=== PATIENT | female | born 1935 | race Caucasian/White ===

== ENCOUNTER 2019-02-16 13:30 | Inpatient (IN) | payer OTHER ==
[~2019-02-16] VITALS: Ht 165.1 cm; Wt 105.5 kg
[~2019-02-16 13:30] MED LIST: AMLO5 PO; ATEN100 PO; ATEN50 PO; CELE200 PO; CHOL10002; CINNAMON; CYAN1000; Cinnamon500 MG PO; DIOVAN; DIPH50 PO; DULO30 PO; FISH1000 PO; FLAX; GABA300 PO; HCTZ; HYDACE5; HYDACE5 PO; HYDCHL12.5 PO; Hair, Skin & N1 EACH PO; LEVSOD112 PO; LEVSOD125 PO; LOSARTAN-HCTZ1 EAC2 PO; MAGOXI400 PO; METF500 PO; MULTIVITAMIN; OMEGA 3-6-9; POTCHL10ER PO; PRAV20 PO; PRAVASTATIN 80 MG; UBID10 PO; UBID100; VALS80 PO; VITAMIN D-32000 UNI1 PO; WARF5 PO; WARF6 PO; [UNRECOGNIZED DRUG - OTHER]
[2019-02-16 13:58] LABS: PCO2 Arterial 31.1 mmHg (35-45); PO2 Arterial 260 mmHg (80-100)
[2019-02-16 14:10] LABS: BASOPHILS ABSOLUTE AUTO 0.02 K/mm3 (0.00-0.23); BASOPHILS PERCENT AUTO 0 % (0-2); EOSINOPHILS PERCENT AUTO 0 % (0-6); Hematocrit 27.8 % (33.0-51.0); Hemoglobin 8.2 g/dL (11.5-16.0); IMMATURE GRAN ABSOLUTE AUTO 0.08 K/mm3 (0.00-0.10); IMMATURE GRAN PERCENT AUTO 1 % (0-1); LYMPHOCYTES ABSOLUTE AUTO 0.93 K/mm3 (0.84-5.20); LYMPHOCYTES PERCENT AUTO 6 % (21-46); MONOCYTES ABSOLUTE AUTO 0.94 K/mm3 (0.16-1.47); MONOCYTES PERCENT AUTO 6 % (4-13); Mean Corpuscular HGB 23.8 pg (26.0-34.0); Mean Corpuscular HGB Conc 29.5 g/dL (31.5-36.5); Mean Corpuscular Volume 81 fL (80-100); Mean Platelet Volume 11.3 fL (9.1-12.4); NEUTROPHILS ABSOLUTE AUTO 14.21 K/mm3 (1.96-9.15); NEUTROPHILS PERCENT AUTO 88 % (41-73); Platelet Count 304 K/mm3 (150-400); RDW Standard Deviation 59.6 fL (35.1-46.3); Red Blood Cell Count 3.44 M/mm3 (3.80-5.20); White Blood Cell Count 16.18 K/mm3 (4.00-11.30)
[2019-02-16 14:26] LABS: International Normalized Ratio 2.63; Prothrombin Time Results 25.5 Sec (9.7-11.5)
[2019-02-16 14:27] LABS: Alanine Aminotransfer (ALT/SGP 29 U/L (12-78); Albumin, Blood 3.3 g/dL (3.4-5.0); Albumin/Globulin Ratio 1.1 (0.8-1.8); Alk Phos 94 U/L (50-136); Anion Gap 10 mmol/L (6-16); Aspartate Aminotrans (AST/SGOT 36 U/L (12-37); Bilirubin, Total 0.7 mg/dL (0.1-1.0); Blood Urea Nitrogen 30 mg/dL (8-24); CO2, Blood 23 mmol/L (21-32); Calcium, Blood 9.1 mg/dL (8.5-10.1); Chloride, Blood 106 mmol/L (98-108); Creatinine, Blood 2.31 mg/dL (0.40-1.00); Ethanol (Alcohol), Blood, Med <3 mg/dL; Globulin, Blood 2.9 g/dL (2.2-4.0); Glomerular Filtration Rate 21 (60-); Glucose, Blood 177 mg/dL (70-99); Potassium, Blood 5.6 mmol/L (3.5-5.5); Sodium, Blood 139 mmol/L (136-145); Total Protein, Blood 6.2 g/dL (6.4-8.2)
--- NOTE | 2019-02-16 17:42 | NUR ---
Stayed with pt as her wounds were suctured. Provided calm, loving presence and comfort through touch.
[2019-02-16 18:50] LABS: Albumin, Blood 2.8 g/dL (3.4-5.0); Bilirubin, Total 0.4 mg/dL (0.1-1.0); Bun/Creatinine Ratio 13.4 (12.0-20.0); Calcium, Blood 8.4 mg/dL (8.5-10.1); Creatinine, Blood 2.17 mg/dL (0.40-1.00); Globulin, Blood 2.8 g/dL (2.2-4.0); Potassium, Blood 5.4 mmol/L (3.5-5.5); Total Protein, Blood 5.6 g/dL (6.4-8.2)
--- NOTE | 2019-02-16 19:00 | NUR ---
Patient arrived at 1830 via ER [facility]. Patient was 5 person slide transfer to ICU 15 bed. I and 4 other nurses clean and dressed all wound and abrasions for 30 minutes and dressed skin tears with petroleum dressing, then Telfa, and covered with Mepelex style dressing. Two to NIKA and two to HERBERTH, jessi strip forth finger on left hand. re-dressed bailateral ankle dressings, sutures intact. .
[2019-02-16 19:23] LABS: Source, Urine Catheter
[2019-02-16 19:30] LABS: Appearance, Urine Clear (Clear); Blood, Urine Neg (Neg); Color, Urine Amber (P-Yellow); Glucose Qualitative, Urine Neg (Neg); Ketones, Urine Neg (Neg); Leukocyte Esterase, Urine 1+ (Neg); Nitrite, Urine Neg (Neg); Protein, Urine 2+ (Neg); Specific Gravity, Urine 1.015 (1.003-1.022); Urobilinogen, Urine 1+ (Normal)
--- NOTE | 2019-02-16 19:30 | NUR ---
Ruelas place 16fr temp. Systolic 90 and placed on 3L O2 for sats 87-90% and sats in low 90% currentlyPPlaced gauze over right thigh puncture site. gave report to Bibi Tsang RN. Patient systolic 80's and called a recieved order for bolus 1L NS and called Dr Yoo for consult and awaiting call back. Covered in warm blankets. Originall she was able to recal most of event and was good historian and now not as quick to respond.
[2019-02-16 19:38] LABS: Bilirubin, Urine 1+ (Neg)
[2019-02-16 19:39] LABS: Amorphous Light (0-Heavy); Bacteria Mod /hpf; Red Blood Cells, Urine 0-2 /hpf (0-2); Squamous Epithelial Cells Not Seen /hpf (Few); White Blood Cells, Urine 0-2 /hpf (0-5)
--- NOTE | 2019-02-16 20:56 | NUR ---
START OF SHIFT: PT A+O BUT STOIC. BP UNSTABLE. PT'S PUNCTURE SITE TO RIGHT THIGH DRAINING NEEDING TWO DRESSING CHANGES THUS FAR. ROSA ELENA GUZMAN PLACED PICC TO [facility]. PLACEMENT VERIFIED BY HOSPITALIST KAYDEN. Hgb DRAWN AT THAT TIME AND WAS 6.2. TWO UNITS PRBC ORDERED STAT. PT REMAINS ALERT AND ANSWERS QUESTIONS APPROPRIATELY.
--- NOTE | 2019-02-16 22:19 | NUR ---
HOSPITALIST CALLED AND WAS UPDATED. NEW ORDERS TO BOLUS ANOTHER LITER OF NS. IF PT WITH NO REACTION TO INITIAL BLOOD TRANSFUSION TO INCREASE RATE TO 200mL/hr. CALL IF BP DOES NOT IMPROVE.
--- NOTE | 2019-02-16 23:36 | NUR ---
NEURO CHECK: PT HAS BEEN AWAKENING EACH TIME RN AT BEDSIDE AND IS APPROPRIATE. PT TURNED TO LEFT SIDE WITH RIGHT LOWER EXTREM ELEVATED ON PILLOS AND IS TOLETATING WELL. PT HAS DENIED PAIN WITH ONLY C/O IS BLOOD PRESSURE CUFF. PT INSTRUCTED TO KEEP EXTREM STILL WHEN CUFF INFLATING, ISSUE RESOLVED. PT CURRENTLY RECEIVING SECOND UNIT PRBC. RIGHT THIGH PUNCTURE WOUND DRAINAGE SLOWING. PT OTHERWISE CONTINUING TO FALL ASLEEP WHEN NOT BOTHERED.
--- NOTE | 2019-02-17 02:21 | NUR ---
DR. HIGGINBOTHAM BY TO SEE PT AND WAS UPDATED. DR. HIGGINBOTHAM STATED THAT A STAT CBC WAS ORDERED AND DRAWING IT WITH THE 0230 LABS WAS FINE.
[2019-02-17 02:47] LABS: BASOPHILS ABSOLUTE AUTO 0.02 K/mm3 (0.00-0.23); BASOPHILS PERCENT AUTO 0 % (0-2); EOSINOPHILS PERCENT AUTO 0 % (0-6); Hematocrit 25.6 % (33.0-51.0); Hemoglobin 7.9 g/dL (11.5-16.0); IMMATURE GRAN ABSOLUTE AUTO 0.03 K/mm3 (0.00-0.10); IMMATURE GRAN PERCENT AUTO 0 % (0-1); LYMPHOCYTES ABSOLUTE AUTO 1.37 K/mm3 (0.84-5.20); LYMPHOCYTES PERCENT AUTO 11 % (21-46); MONOCYTES ABSOLUTE AUTO 1.39 K/mm3 (0.16-1.47); MONOCYTES PERCENT AUTO 11 % (4-13); Mean Corpuscular HGB 25.8 pg (26.0-34.0); Mean Corpuscular HGB Conc 30.9 g/dL (31.5-36.5); Mean Corpuscular Volume 84 fL (80-100); Mean Platelet Volume 11.5 fL (9.1-12.4); NEUTROPHILS ABSOLUTE AUTO 9.78 K/mm3 (1.96-9.15); NEUTROPHILS PERCENT AUTO 78 % (41-73); Platelet Count 204 K/mm3 (150-400); RDW Coefficient Variation 20.9 % (11.7-14.2); RDW Standard Deviation 63.4 fL (35.1-46.3); Red Blood Cell Count 3.06 M/mm3 (3.80-5.20); White Blood Cell Count 12.59 K/mm3 (4.00-11.30)
[2019-02-17 02:58] LABS: Hematocrit 21.1 % (33.0-51.0); Hemoglobin 6.2 g/dL (11.5-16.0); Mean Corpuscular HGB 24.3 pg (26.0-34.0); Mean Corpuscular HGB Conc 29.4 g/dL (31.5-36.5); Mean Corpuscular Volume 83 fL (80-100); Mean Platelet Volume 12.2 fL (9.1-12.4); Platelet Count 231 K/mm3 (150-400); RDW Coefficient Variation 20.9 % (11.7-14.2); RDW Standard Deviation 62.5 fL (35.1-46.3); Red Blood Cell Count 2.55 M/mm3 (3.80-5.20); White Blood Cell Count 12.24 K/mm3 (4.00-11.30)
[2019-02-17 03:00] LABS: International Normalized Ratio 2.75; Prothrombin Time Results 26.6 Sec (9.7-11.5)
[2019-02-17 03:08] LABS: Albumin, Blood 2.5 g/dL (3.4-5.0); Albumin/Globulin Ratio 1.1 (0.8-1.8); Bilirubin, Total 0.7 mg/dL (0.1-1.0); Bun/Creatinine Ratio 14.4 (12.0-20.0); Calcium, Blood 7.4 mg/dL (8.5-10.1); Creatinine, Blood 2.09 mg/dL (0.40-1.00); Globulin, Blood 2.2 g/dL (2.2-4.0); Potassium, Blood 4.9 mmol/L (3.5-5.5); Total Protein, Blood 4.7 g/dL (6.4-8.2)
--- NOTE | 2019-02-17 03:28 | NUR ---
PT CONTINUES TO AWAKE APPROPRIATELY. PT STATED IS COMFORTABLE IN POSITION, "CONSIDERING, MY BACK". PT HAS DENIED PAIN WHEN ASKED BUT GRIMACES WHEN DRESSING CHANGED TO RIGHT THIGH STATING, "THAT'S WHERE IT'S SORE". [facility] VISTED PT AND BOTH TALKED FOR A FEW MINUTES. PT CONVERSED WELL. PT WITH COMPLAINTS OR CONCERNS T/O NOC. BP REMAINS HYPOTENSIVE, SATS 94-99% ON RA, HR IN THE 60'S-70'S. PT EXTREM ELEVATED ON PILLOWS. BRICENO PATENT AND DRAINING TO GRAVITY. CALL LIGHT IN RIGHT HAND.
--- NOTE | 2019-02-17 07:30 | NUR ---
Recieved report from Bibi Tsang RN. Abdi was sitting up in bed. She is able to commumnicate her needs and get upset very quickly. She was taking off her pull up and asked why she was taking off and she stated she was pulling them up and removed them continuely stating she was putting them on. She remains in bilateral soft wrist restraints, skin and cirrculation were checked and re-applied. She was pulling O2 off and grabing at her powerglide. She layed back down and is currently resting again. She occassionaly calls to use bedside cammode but otherwise incontinent. She wears 2L O2 and sast mid to low 90%'s and drops in the 80%'s when O2 off or exertion. She re-direct with several trys.
--- NOTE | 2019-02-17 08:00 | NUR ---
Recieved report from Bibi Tsang RN. Patient resting at report but is currently sitting up in bed with HOB at 30m degrees eating breakfast and set up in fromnt of her, she is eating slow but independently. She states that she is overall very sore. She is on RA and sats upper 90%'s. Reassessed wounds and updated info on pics. She has 16Fr temp stanley placed last night and has light atul urine in bag draining to gravity.. Changed fluids to LR at 125ml/hr. Feel faint bilateral pedal bules and sound good with doppler. Bilateral LE dressings C/D/I. She has expressed when talking with her that she is very attomate about wanting restraining order and asked both SS and security for resources. Right eye still very swollen and visual blood and she states very blurry, left eye she states can see well with, no blolood in eye. RLE puncture site still open and has small amount of drainage.
[2019-02-17 08:06] LABS: U Amphetamine Screen Not Detected; U Barbituate Screen Not Detected; U Benzodiazapine Screen Not Detected; U Buprenorphine Screen Not Detected; U Cannabinoids Screen Not Detected; U Cocaine Screen Not Detected; U Methadone Screen Not Detected; U Methamphetamine Screen Not Detected; U Opiates Screen Not Detected; U Oxycodone Screen Not Detected; U Phencyclidine Screen Not Detected; U Propoxyphene Screen Not Detected
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
--- NOTE | 2019-02-17 11:18 | NUR ---
echocardiogram completed
--- NOTE | 2019-02-17 11:30 | NUR ---
She has friends in room and she gave me info to try to locate brothers in [place] to contact. Systolic still in 90's anf MAP> 65. JNo other current changes.
--- NOTE | 2019-02-17 14:00 | NUR ---
Patient has been resting and has had many visitors and calls for her. Gave report to Jaylene GUZMAN in person. Patient will be transfered to [facility] surgical . BPA is in room talking with patient and will transfer shortly after. Giving 500ml NS bolus for hypotension with systolics 80's.
--- NOTE | 2019-02-17 15:49 | NUR ---
Patient was transfered to 211 and transfered to bed with 5 assist. Fany Mariee RN continue Bolus as pressure systolic trending down after first bolus stopped.
--- NOTE | 2019-02-17 15:51 | NUR ---
TRANSFER FROM ICU PT ARRIVED FROM ICU VIA BED, AWAKE, PLEASANT, PAINFUL WHEN MOVED, MEPILEX DRESSING APPLIED TO BILAT. HEELS AND COCCYX AREA, WOUNDS NOTED, WOUND PHOTOS REVIEWED, PUNCTURE WOUND ON RLE NOTED W/ SANGUINOUS DRAINAGE, ORIENTED TO ROOM LAYOUT AND CALL SYSTEM, PT VISITING WITH GRANDDAUGHTER AND 2 DETECTIVES AT THIS TIME, CONT. TO MONITOR FOR ANY CHANGES.
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
[2019-02-17 18:38] LABS: Source, Urine Catheter
[2019-02-17 18:46] LABS: Bilirubin, Urine Neg (Neg); Blood, Urine 1+ (Neg); Glucose Qualitative, Urine Neg (Neg); Ketones, Urine Neg (Neg); Leukocyte Esterase, Urine 1+ (Neg); Nitrite, Urine Neg (Neg); Protein, Urine 1+ (Neg); Urobilinogen, Urine NORM (Normal)
[2019-02-17 18:52] LABS: Appearance, Urine Clear (Clear); Color, Urine Yellow (P-Yellow)
[2019-02-17 18:56] LABS: Bacteria Mod /hpf; Mucus Mod (0-Heavy); Red Blood Cells, Urine 0-2 /hpf (0-2); Squamous Epithelial Cells Mod /hpf (Few)
[2019-02-17 18:57] LABS: Transitional Epithelial Cells Few /hpf (0-Rare)
--- NOTE | 2019-02-17 22:28 | NUR ---
PT VSS, REPOSITIONED IN BED. PT WEAK, PAINFUL W/MVMT. NEW ABSORBANT PAD PLANED BENEATH LEGS R/T SS DRNG FROM RLE. PT MEDICATED FOR PAIN PER REQ, REP "IT'S KIDA HARD TO SAY" WHEN ASKED TO RATE PAIN. ORANGE JUICE GIVEN PER PT REQ, PT ASSISTED W/CUP. PT DENIES FURTHER NEEDS AT THIS TIME, CALL LIGHT IN REACH.
[2019-02-18 04:33] LABS: Hematocrit 20.5 % (33.0-51.0); Hemoglobin 6.3 g/dL (11.5-16.0); Mean Corpuscular HGB 25.3 pg (26.0-34.0); Mean Corpuscular HGB Conc 30.7 g/dL (31.5-36.5); Mean Corpuscular Volume 82 fL (80-100); Mean Platelet Volume 11.5 fL (9.1-12.4); Platelet Count 152 K/mm3 (150-400); RDW Coefficient Variation 21.8 % (11.7-14.2); RDW Standard Deviation 65.1 fL (35.1-46.3); Red Blood Cell Count 2.49 M/mm3 (3.80-5.20); White Blood Cell Count 8.74 K/mm3 (4.00-11.30)
[2019-02-18 04:55] LABS: Bun/Creatinine Ratio 18.7 (12.0-20.0); Calcium, Blood 7.7 mg/dL (8.5-10.1); Creatinine, Blood 1.5 mg/dL (0.40-1.00); Potassium, Blood 4.1 mmol/L (3.5-5.5)
--- NOTE | 2019-02-18 06:25 | NUR ---
H&H: H&H NOTED TO HAVE DROPPED FROM 7.9/25.6 TO 6.3/20.5. VITALS HAVE REMAINED STABLE. CALL PLACED TO HOSPITALIST, AM LABS, VITALS AND IVF ORDERS REV. NEW ORDER FOR 1 UNIT PRBC. ALSO DISCUSSED THIGH SWELLING. PLAN TO PASS ON TO DAY RN FOR FOLLOW UP BY DAY .
--- NOTE | 2019-02-18 06:28 | NUR ---
PT A/O. SATS >90% ON RA, BP STABLE, HR AFIB 70'S PER TELE MONITOR. H&H LOW THIS AM, NEW ORDERS FOR PRBC REC. FEET REMAIN PALE, ARE MORE WARM THIS AM, PULSE PALPABLE, PT REP NO CHANGE IN NUMBNESS. RIGHT THIGH SWOLLEN, W/DARK BRUISING, MD AWARE. RLE DRAINING SS DRNG, PADS CHANGED X2 THIS SHIFT R/T SATURATION. PT FRANCISCO SIPS OF WATER AND JUICE, BRICENO DRNG DARK URINE. PT VERY WEAK, PAINFUL W/MVMT; GENTLE REPOSITIONING PT FRANCISCO T/O NIGHT. IVF CONT PER ORDERS. FRIENDS IN EARLY IN SHIFT. PT REP FEELING WORN OUT AFTER VISITORS, SLEPT FOR MOST OF NIGHT, AWOKE EASILY. WILL CONT TO MONITOR UNTIL REP GIVEN TO ONCOMING RN.
--- NOTE | 2019-02-18 10:01 | NUR ---
1 UNIT PRBC STARTED, PT REPORTS PAIN HAS BEEN UNDER 5/10, BUT REPORTS RLE IS MORE "SORE" TODAY, RLE APPEARS MORE SWOLLEN, PT'S R EYE IS MORE OPEN TODAY, CONT. TO HAVE REDNESS IN SCLERA, DENIES CHANGES IN VISION BUT STATES SHE FEELS LIKE SHE NEEDS HER GLASSES TO SEE, PT ABLE TO FEED HERSELF BREAKFST THIS AM, SEEMS TO BE IN GOOD SPIRITS, CONT. TO MONITOR.
--- NOTE | 2019-02-18 11:51 | NUR ---
DR. RODRIGUEZ NOTIFIED REGARDING INCREASED SWELLING AND PAIN ON R THIGH, EXAMINED PT IN ROOM, NO NEW ORDERS RECEIVED, WILL CONTINUE TO MONITOR.
--- NOTE | 2019-02-18 16:00 | NUR ---
DSG CHANGE 3 SMALL LACERATION WOUNDS ON R LATERAL LEG NOTED DRAINING LARGE AMOUNTS OF SEROSANGUINOUS DRAINAGE, DRESSING CHANGED WITH XEROFORM, COVERED WITH ADHESIVE DRESSING, DR. WILL SAW PT DURING DRESSING CHANGE, EXAMINED PT'S R THIGH, JUST CONTINUE TO MONITOR FOR NOW, ALEXEI. ANKLE DRESSINGS CHANGED, PT TOLERATED FAIRLY WELL, TURNED AND REPOSITIONED ON L SIDE.
--- NOTE | 2019-02-18 17:32 | NUR ---
SUMMARY PT HAS HAD AN UNEVENTFUL DAY, WORKED W/ PHYS TX, UNABLE TO GET UP OOB DUE TO INCREASED PAIN AND WEAKNESS, INSTRUCTED TO DO SOME BED EXERCISES PER THERAPY, R THIGH MEASURED AT 24.5IN DURING DSG CHANGE, PT TURNED AND REPOSITIONED IN BED, NO ACUTE CHANGES THIS SHIFT.
[2019-02-19 04:58] LABS: Hematocrit 21.9 % (33.0-51.0); Hemoglobin 6.8 g/dL (11.5-16.0); Mean Corpuscular HGB 25.7 pg (26.0-34.0); Mean Corpuscular HGB Conc 31.1 g/dL (31.5-36.5); Mean Corpuscular Volume 83 fL (80-100); Mean Platelet Volume 10.8 fL (9.1-12.4); NRBC ABSOLUTE 0.02 K/mm3 (0.00-0.02); NRBC Auto 0.3 /100 WBC (0.0-0.2); Platelet Count 129 K/mm3 (150-400); RDW Coefficient Variation 20.8 % (11.7-14.2); RDW Standard Deviation 61.6 fL (35.1-46.3); Red Blood Cell Count 2.65 M/mm3 (3.80-5.20); White Blood Cell Count 7.44 K/mm3 (4.00-11.30)
[2019-02-19 05:15] LABS: Bun/Creatinine Ratio 19.3 (12.0-20.0); Calcium, Blood 7.8 mg/dL (8.5-10.1); Creatinine, Blood 1.14 mg/dL (0.40-1.00); Potassium, Blood 3.5 mmol/L (3.5-5.5)
--- NOTE | 2019-02-19 06:10 | NUR ---
SUMMARY: NO CHANGE TONIGHT, VSS. PT CONTINUES TO BE VERY PAINFUL WITH ANY MOVEMENT, REPOSITIONED Q2 AND PRN, MEDICATED PER EMAR. LEGS AND ARMS ELEVATED. DRESSINGS CDI. TELE WNL, PT A/O. NO ACUTE CONCERNS AT THIS TIME.
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
--- NOTE | 2019-02-19 15:18 | NUR ---
SHIFT SUMMARY PT A&OX4, [place] AND CANNOT SEE WELL DOES NOT HAVE EYE GLASSES IN POSSESSION. VSS, TELE AFIB @ 68. CBG'S CNI. PAIN MANAGED W/ 5 MG PERC. BRICENO PATENT & DRAINING YELLOW URINE, OFF FLOOR, STAT LOCK IN PLACE. REC'D 1 UNIT BLOOD TODAY. MOVES AND REPOSITIONS WELL W/ASSIST. NEURO CHECKS WNL. FRANCISCO PO, DENIES N&V. WCTM AND TX PER EMAR UNTIL REPORT GIVEN TO ONCOMING NOC RN.
[2019-02-20 04:41] LABS: Hematocrit 24.4 % (33.0-51.0); Hemoglobin 7.6 g/dL (11.5-16.0)
[2019-02-20 04:56] LABS: Bun/Creatinine Ratio 19.6 (12.0-20.0); Calcium, Blood 7.9 mg/dL (8.5-10.1); Creatinine, Blood 1.02 mg/dL (0.40-1.00); Potassium, Blood 3.7 mmol/L (3.5-5.5)
--- NOTE | 2019-02-20 07:45 | NUR ---
SHIFT SUMMARY PT A&O X4 T/O SHIFT. DRESSINGS TO MULTIPLE SITES CDI; SCATTERED SCABS AND ABRATIONS AND BRUISING NOTED T/O BODY. PT REPOSITIONED TOLERATED. PAIN MANGED PER EMAR. NO ACUTE CHANGES. CONT. OXEMITRY; SATS IN 90% ON RA THROUGH NIGHT AND THIS AM. JANAK PATENT. CALL LIGHT IN REACH. REPORT GIVEN TO DAY SHIFT RN.
--- NOTE | 2019-02-20 17:50 | NUR ---
SHIFT SUMMARY PT A&OX4, SLOW TO RESPOND BUT APPROPRIATE. CBGS CNI. TELE AFIB 70S-80S. WORKED WITH PHYSICAL THERAPY TODAY AND SAT ON SIDE OF BED. REPOSITION Q2. FRANCISCO PO, DENIES N&V. PAIN MANAGED WITH 5 MG PERC. BRICENO PATENT & DRAINING YELLOW URINE, STAT LOCK ON, OFF FLOOR. PICC ADRIAN. WCTM & TX PER EMAR UNTIL REPORT GIVEN TO ONCOMING KELLY GUZMAN.
[2019-02-21 04:32] LABS: Hematocrit 25.2 % (33.0-51.0); Hemoglobin 7.8 g/dL (11.5-16.0)
[2019-02-21 04:48] LABS: Anion Gap 3 mmol/L (6-16); Blood Urea Nitrogen 17 mg/dL (8-24); Bun/Creatinine Ratio 18.3 (12.0-20.0); CO2, Blood 31 mmol/L (21-32); Calcium, Blood 8.2 mg/dL (8.5-10.1); Chloride, Blood 109 mmol/L (98-108); Creatinine, Blood 0.93 mg/dL (0.40-1.00); Glomerular Filtration Rate >60 (60-); Glucose, Blood 91 mg/dL (70-99); Potassium, Blood 3.7 mmol/L (3.5-5.5); Sodium, Blood 143 mmol/L (136-145)
--- NOTE | 2019-02-21 07:49 | NUR ---
SHIFT SUMMARY: PT A&O X4. BP ELEVATED T/O SHIFT. MEDICATED WITH PERCOCET TWICE. TELE AFIB IN 70'S. DENIES N/V. FRANCISCO PO. SALINE LOCKED. BRICENO PATENT AND DRAINING CLEAR YELLOW URINE. PT PLEASANT AND COOPERATIVE.
[2019-02-21 10:00] LABS: International Normalized Ratio 1.45; Prothrombin Time Results 14.9 Sec (9.7-11.5)
--- NOTE | 2019-02-21 18:56 | NUR ---
SUMMARY NO ACUTE CHANGES T/O SHIFT. PT WORKED W/THERAPY AND WAS ABLE TO STAND AND TRANSFER TO CHAIR. SAT UP FOR DINNER. NOW BACK TO BED. JANAK WATKINS DC'D AT APPROXIMATELY 1630. ATTENDS IN PLACE. CALL LIGHT IN REACH.
[2019-02-22 05:04] LABS: International Normalized Ratio 1.33; Prothrombin Time Results 13.7 Sec (9.7-11.5)
--- NOTE | 2019-02-22 05:57 | NUR ---
GOOD URINE OUTPUT SINCE REMOVAL OF BRICENO CATH. PT IS INCONTINENT, DEPENDS IN PLACE. HAS BEEN ABLE TO TURN HERSEF IN THE BED. DENIES PAIN, DISCOMFORT, OR FURTHER NEEDS AT THIS TIME. SAFETY MEASURES IN PLACE. WILL GIVE HAND OFF TO ONCOMING SHIFT.
--- NOTE | 2019-02-22 15:49 | NUR ---
AND URVASHI IN TO SEE 211.
--- NOTE | 2019-02-22 17:27 | NUR ---
SUMMARY NO ACUTE CHANGES T/O SHIFT. PT SAT UP IN CHAIR FOR PORTION OF SHIFT AND WORKED W/THERAPY. DR WILL CHANGED DRESSINGS TO BILATERAL ANKLES. VISITORS T/O DAY. CALL LIGHT IN REACH.
[2019-02-22 21:55] LABS: Stool Occult Blood Guaiac 1 Neg (Neg)
[2019-02-23 05:18] LABS: International Normalized Ratio 1.49; Prothrombin Time Results 15.2 Sec (9.7-11.5)
--- NOTE | 2019-02-23 06:26 | NUR ---
SHIFT SUMMARY PT HAS SEVERAL BM'S THIS SHIFT. DEPENDS IN PLACE. HAS BEEN ABLE TO TURN HERSEF IN THE BED. OTTO TREATED WITH PAIN MEDS PER MD ORDER. DENIES DISCOMFORT, OR FURTHER NEEDS AT THIS TIME. SAFETY MEASURES IN PLACE. WILL GIVE HAND OFF TO ONCOMING SHIFT.
--- NOTE | 2019-02-23 14:48 | NUR ---
blister right thigh blister to right thigh drained while patient oob to restroom. mepilex applied and wrapped with gauze. dressing dislodged from right forearm skin tear. vaseline gauze, mepilex applied and wrapped with gauze. patients friend at bedside.
--- NOTE | 2019-02-23 17:50 | NUR ---
SUMMARY PATIENT CHEERFUL, TALKATIVE THROUGHOUT SHIFT. UP TO BATHROOM WITH 1 PERSON ASSIST. PATIENT IS AWAITING SNF BED
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
--- NOTE | 2019-02-23 18:46 | NUR ---
SPOKE WITH DOMINIQUE AT [facility] AND THEY ARE UNABLE TO ACCEPT PATIENT THIS EVENING WITHOUT A WRITTEN NARCOTIC PRESCRIPTION.
[2019-02-24 04:32] LABS: International Normalized Ratio 2.01
--- NOTE | 2019-02-24 06:07 | NUR ---
SHIFT SUMMARY PT REMAINS A&O X4. PAIN MANAGED PER EMAR WITH PO PERCOCET X2. DRSG TO THE RIGHT ARM CHANGED AND WRAPPED WITH GAUZE. ALL OTHER DRSG'S REMAIN C/D/I. EXTREMITIES ELEVATED ON PILLOWS THROUGH THE NIGHT, PT TURNED Q2 HRS. ATTENDS CHANGED PRN. SKIN CARE PROVIDED. TOILETING ENCOURAGED. PT REFUSED AND CLAIMED TO BE TOO PAINFUL AND STATED SHE "DID NOT REALLY KNOW WHEN SHE WAS GOING ANYHOW". WCTM AND REPORT TO THE DAY SHIFT.
--- NOTE | 2019-02-24 06:55 | NUR ---
RECVD REPORT FROM PREVIOUS RN RAS, PT SLEEPING IN BED, BED IN LOWEST POSITION, BED RAILS UP X 2, CALL LIGHT WITHIN REACH
--- NOTE | 2019-02-24 11:20 | NUR ---
report called to MEGAN Bain, pt will be transorted via wheelchair van at 1300
--- NOTE | 2019-02-24 13:14 | NUR ---
pt provided with cart for tranferring her belongings which her friend will transport to the nursing home facility in her vehicle. pt transferred to awaiting wheelchair van via wheelchair, escorted by recycling collections driver. report called to MEGAN sherman at [facility] approx [phone]
[2019-04-11] MEDS ORDERED: LINE600 PO (12:34)
[2019-04-11] MEDS ORDERED: PANT20 PO (12:34)
[2019-04-11] MEDS ORDERED: Senna8.6 MG PO (12:37)
[2019-04-11] MEDS ORDERED: Percocet 5-3251 EACH PO (12:37)
[2019-04-11] MEDS ORDERED: FURO40 PO (12:38)
[2019-04-11] MEDS ORDERED: BISA10S PR (12:38)
[2019-04-11] MEDS ORDERED: Milk Of Ma400 MG/5 M PO (12:39)
[2019-04-11] MEDS ORDERED: LEVFLO500 PO (12:40)
== END 2019-02-24 13:26 | DRG 982 ==
LOC: ER 13:30 → ICUW 16:51 → SURS 16:51 → ICUW 17:43 → SURS 02-17 15:38
PROVIDERS: Emergency Medicine; Hospitalist; Internal Medicine; Nurse Practitioner Acute Care; ADMIT Surgery
PROC: 30233N1 Transfusion of Nonautologous Red Blood Cells into Peripheral Vein, Percutaneous Approach (ICD-10-PCS; principal; 2019-02-16)
PROC: 0YQLXZZ Repair Left Ankle Region, External Approach (ICD-10-PCS; 2019-02-16)
PROC: 0YQ Anatomical Regions, Lower Extremities, Repair (ICD-10-PCS; 2019-02-16)
PROC: 0HQ5XZZ Repair Chest Skin, External Approach (ICD-10-PCS; 2019-02-16)
DX: S91.011A Laceration without foreign body, right ankle, initial encounter (principal); S21.129A Laceration with foreign body of unspecified front wall of thorax without penetration into thoracic cavity, initial encounter; N17.9 Acute kidney failure, unspecified; D62 Acute posthemorrhagic anemia; E87.2 Acidosis; R65.10 Systemic inflammatory response syndrome (SIRS) of non-infectious origin without acute organ dysfunction; S91.012A Laceration without foreign body, left ankle, initial encounter; E87.5 Hyperkalemia; Y04.2XXA Assault by strike against or bumped into by another person, initial encounter; I12.9 Hypertensive chronic kidney disease with stage 1 through stage 4 chronic kidney disease, or unspecified chronic kidney disease; E11.22 Type 2 diabetes mellitus with diabetic chronic kidney disease; N18.9 Chronic kidney disease, unspecified; I48.2 Chronic atrial fibrillation; E03.9 Hypothyroidism, unspecified; Z79.01 Long term (current) use of anticoagulants; Z51.5 Encounter for palliative care; Z85.42 Personal history of malignant neoplasm of other parts of uterus; K59.00 Constipation, unspecified
CPT/HCPCS: 12007; 36415; 36430; 36569; 36600; 51702; 70450; 70486; 71045; 71260; 72125; 72170; 73552; 74177; 80048; 80053; 81001; 82272; 82550; 82803; 82947; 83605; 83615; 83690; 83735; 83874; 84300; 84443; 84484; 85014; 85018; 85025; 85027; 85610; 85730; 86850; 86900; 86901; 86923; 87086; 90471; 90714; 93306; 94762; 96361-59; 96372-59; 96374-59; 96375-59; 96376-59; 97110; 97116; 97163; 97530; 99285-25; C1751; C9113; G0480; J0690; J2405; J3010; J7030; J7040; J7050; J7120; P9016; Q9967

== ENCOUNTER 2019-03-24 00:12 | Day surgery (SDC) | payer OTHER ==
[2019-04-11] MEDS ORDERED: PANT20 PO (12:34)
[2019-04-11] MEDS ORDERED: LINE600 PO (12:34)
[2019-04-11] MEDS ORDERED: Percocet 5-3251 EACH PO (12:37)
[2019-04-11] MEDS ORDERED: Senna8.6 MG PO (12:37)
[2019-04-11] MEDS ORDERED: BISA10S PR (12:38)
[2019-04-11] MEDS ORDERED: FURO40 PO (12:38)
[2019-04-11] MEDS ORDERED: Milk Of Ma400 MG/5 M PO (12:39)
[2019-04-11] MEDS ORDERED: LEVFLO500 PO (12:40)
== END 2019-03-24 22:46 | disposition home or self-care (01) ==
LOC: WOUND 00:12
DX: S81.809A Unspecified open wound, unspecified lower leg, initial encounter (principal); E11.9 Type 2 diabetes mellitus without complications; R60.9 Edema, unspecified; I10 Essential (primary) hypertension; E89.0 Postprocedural hypothyroidism; Z85.42 Personal history of malignant neoplasm of other parts of uterus; Z96.652 Presence of left artificial knee joint; I49.9 Cardiac arrhythmia, unspecified
CPT/HCPCS: 87071; 87075; 87077; 87147; 87186; 87205

== ENCOUNTER 2019-03-31 00:05 | Day surgery (SDC) | payer OTHER ==
[2019-04-11] MEDS ORDERED: PANT20 PO (12:34)
[2019-04-11] MEDS ORDERED: LINE600 PO (12:34)
[2019-04-11] MEDS ORDERED: Senna8.6 MG PO (12:37)
[2019-04-11] MEDS ORDERED: Percocet 5-3251 EACH PO (12:37)
[2019-04-11] MEDS ORDERED: FURO40 PO (12:38)
[2019-04-11] MEDS ORDERED: BISA10S PR (12:38)
[2019-04-11] MEDS ORDERED: Milk Of Ma400 MG/5 M PO (12:39)
[2019-04-11] MEDS ORDERED: LEVFLO500 PO (12:40)
== END 2019-03-31 22:40 | disposition home or self-care (01) ==
LOC: WOUND 00:05
DX: S81.809A Unspecified open wound, unspecified lower leg, initial encounter (principal); E11.40 Type 2 diabetes mellitus with diabetic neuropathy, unspecified; I10 Essential (primary) hypertension
CPT/HCPCS: G0463

== ENCOUNTER 2019-04-07 09:24 | Day surgery (SDC) | payer OTHER ==
[2019-04-11] MEDS ORDERED: PANT20 PO (12:34)
[2019-04-11] MEDS ORDERED: LINE600 PO (12:34)
[2019-04-11] MEDS ORDERED: Percocet 5-3251 EACH PO (12:37)
[2019-04-11] MEDS ORDERED: Senna8.6 MG PO (12:37)
[2019-04-11] MEDS ORDERED: BISA10S PR (12:38)
[2019-04-11] MEDS ORDERED: FURO40 PO (12:38)
[2019-04-11] MEDS ORDERED: Milk Of Ma400 MG/5 M PO (12:39)
[2019-04-11] MEDS ORDERED: LEVFLO500 PO (12:40)
== END 2019-04-07 22:42 | disposition home or self-care (01) ==
LOC: WOUND 09:24
DX: S81.802A Unspecified open wound, left lower leg, initial encounter (principal); S81.801A Unspecified open wound, right lower leg, initial encounter; S71.101A Unspecified open wound, right thigh, initial encounter; E11.40 Type 2 diabetes mellitus with diabetic neuropathy, unspecified; I10 Essential (primary) hypertension; I48.91 Unspecified atrial fibrillation; E03.9 Hypothyroidism, unspecified; E78.5 Hyperlipidemia, unspecified; E66.9 Obesity, unspecified

== ENCOUNTER 2019-04-12 08:58 | Day surgery (SDC) | payer OTHER ==
[~2019-04-12] VITALS: Ht 165.1 cm; Wt 100.1 kg
[~2019-04-12 08:58] MED LIST changes: +BISA10S PR; +FURO40 PO; +LEVFLO500 PO; +LINE600 PO; +Milk Of Ma400 MG/5 M PO; +PANT20 PO; +Percocet 5-3251 EACH PO; +Senna8.6 MG PO
[2019-04-12 12:05] LABS: International Normalized Ratio 1.36
[2019-04-12] MEDS ORDERED: [UNRECOGNIZED DRUG - OTHER] PO (12:10)
[2019-04-12] MEDS ORDERED: LINE600 PO (12:12)
[2019-04-12] MEDS ORDERED: Ear System15 ML BOTHEARS (12:14)
[2019-04-12] MEDS ORDERED: Humalog100 UNIT/1 (12:16)
--- NOTE | 2019-04-12 12:18 | NUR ---
MEDICATION LIST AND LAST DOSE RECONCILED PER ALKA OLVERA AND VERBAL CONVERSATION OVER THE PHONE TO CLARIFY NO MEDICATIONS HAD BEEN GIVEN TODAY.
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
--- NOTE | 2019-04-12 13:10 | NUR ---
04/12/19 1310 Vivian Winters ALL COUNTS CORRECT. HOME WOUND VAC PLACED BY DR. ANDERSEN.
--- NOTE | 2019-04-12 16:31 | NUR ---
[facility] HERE TO GET PATIENT. PATEINT JUAN PAIN, NAUSEA. TOLERATING PO. Discharge instructions reviewed with patient. Patient verbalizes understanding. Copy given to patient to take home. CALLED REPORT TO KRIS GUZMAN. FAXED HER DISCHARGE INSTRUCTIONS TO ENSURE CLARITY OF RESUMING COUMADIN ON 04/13/19. FAXED TO [facility] FOR WOUND VAC. OUT VIA W/C WITH TRANSPORT
== END 2019-04-12 23:26 | disposition home or self-care (01) ==
LOC: ORSCMMR 08:58 → ORD 10:30 → ORSCMMR 10:30
PROVIDERS: Surgery
PROC: 0KBQ0ZZ Excision of Right Upper Leg Muscle, Open Approach (ICD-10-PCS; principal; 2019-04-12 10:30)
PROC: 0JBL0ZZ Excision of Right Upper Leg Subcutaneous Tissue and Fascia, Open Approach (ICD-10-PCS; principal; 2019-04-12 10:30)
DX: S71.101S Unspecified open wound, right thigh, sequela (principal); E11.9 Type 2 diabetes mellitus without complications; I10 Essential (primary) hypertension; E03.9 Hypothyroidism, unspecified; I48.91 Unspecified atrial fibrillation; Z79.01 Long term (current) use of anticoagulants; I25.10 Atherosclerotic heart disease of native coronary artery without angina pectoris; Z79.899 Other long term (current) drug therapy; E66.9 Obesity, unspecified
CPT/HCPCS: 82947; 85610; J0690; J2704; J3010; J7120

== ENCOUNTER 2019-04-14 00:31 | Day surgery (SDC) | payer OTHER ==
[~2019-04-14 00:31] MED LIST changes: +Ear System15 ML BOTHEARS; +Humalog100 UNIT/1; +[UNRECOGNIZED DRUG - OTHER] PO
== END 2019-04-14 23:08 | disposition home or self-care (01) ==
LOC: WOUND 00:31
DX: S71.101A Unspecified open wound, right thigh, initial encounter (principal); S91.001A Unspecified open wound, right ankle, initial encounter; S91.002A Unspecified open wound, left ankle, initial encounter; E11.42 Type 2 diabetes mellitus with diabetic polyneuropathy; I10 Essential (primary) hypertension; I48.91 Unspecified atrial fibrillation

== ENCOUNTER 2019-04-19 16:44 | Emergency (ER) | payer OTHER ==
[~2019-04-19] VITALS: Ht 165.1 cm; Wt 113.4 kg
[2019-04-19 18:15] LABS: Source, Urine Catheter
[2019-04-19 18:26] LABS: Bilirubin, Urine Neg (Neg); Blood, Urine 5+ (Neg); Glucose Qualitative, Urine Neg (Neg); Ketones, Urine Neg (Neg); Leukocyte Esterase, Urine 1+ (Neg); Nitrite, Urine Neg (Neg); Protein, Urine 1+ (Neg); Urobilinogen, Urine NORM (Normal)
[2019-04-19 18:29] LABS: BASOPHILS ABSOLUTE AUTO 0.01 K/mm3 (0.00-0.23); BASOPHILS PERCENT AUTO 0 % (0-2); EOSINOPHILS PERCENT AUTO 0 % (0-6); Hematocrit 22.9 % (33.0-51.0); Hemoglobin 6.9 g/dL (11.5-16.0); IMMATURE GRAN ABSOLUTE AUTO 0.17 K/mm3 (0.00-0.10); IMMATURE GRAN PERCENT AUTO 2 % (0-1); LYMPHOCYTES PERCENT AUTO 4 % (21-46); MONOCYTES PERCENT AUTO 6 % (4-13); Mean Corpuscular HGB 24.8 pg (26.0-34.0); Mean Corpuscular HGB Conc 30.1 g/dL (31.5-36.5); Mean Corpuscular Volume 82 fL (80-100); Mean Platelet Volume 11.2 fL (9.1-12.4); NEUTROPHILS ABSOLUTE AUTO 10.04 K/mm3 (1.96-9.15); NEUTROPHILS PERCENT AUTO 88 % (41-73); NRBC ABSOLUTE 0.05 K/mm3 (0.00-0.02); NRBC Auto 0.4 /100 WBC (0.0-0.2); Platelet Count 192 K/mm3 (150-400); RDW Coefficient Variation 16.2 % (11.7-14.2); RDW Standard Deviation 49.1 fL (35.1-46.3); Red Blood Cell Count 2.78 M/mm3 (3.80-5.20); White Blood Cell Count 11.42 K/mm3 (4.00-11.30)
[2019-04-19 18:33] LABS: Appearance, Urine Clear (Clear); Color, Urine Yellow (P-Yellow)
[2019-04-19 18:34] LABS: Bacteria Mod /hpf; Squamous Epithelial Cells Few /hpf (Few)
[2019-04-19 18:47] LABS: Anion Gap 3 mmol/L (6-16); Blood Urea Nitrogen 19 mg/dL (8-24); Bun/Creatinine Ratio 20.4 (12.0-20.0); CO2, Blood 32 mmol/L (21-32); Calcium, Blood 8.8 mg/dL (8.5-10.1); Chloride, Blood 105 mmol/L (98-108); Creatinine, Blood 0.93 mg/dL (0.40-1.00); Glomerular Filtration Rate >60 (60-); Glucose, Blood 131 mg/dL (70-99); Potassium, Blood 3.8 mmol/L (3.5-5.5); Sodium, Blood 140 mmol/L (136-145)
[2019-04-19] MEDS ORDERED: LEVFLO500 PO (19:24)
== END 2019-04-19 20:52 | disposition home or self-care (01) ==
LOC: ER 16:44
PROVIDERS: Emergency Medicine
DX: J18.9 Pneumonia, unspecified organism (principal); N39.0 Urinary tract infection, site not specified; D64.9 Anemia, unspecified; E11.9 Type 2 diabetes mellitus without complications; L53.8 Other specified erythematous conditions
CPT/HCPCS: 36415; 71046; 80048; 81001; 85025; 87086; 99284-25; P9612

== ENCOUNTER 2019-04-20 00:28 | Day surgery (SDC) | payer OTHER | END 2019-04-20 22:53 | disposition home or self-care (01) | LOC: WOUND | DX: S71.101A Unspecified open wound, right thigh, initial encounter (principal); S91.002A Unspecified open wound, left ankle, initial encounter; S91.001A Unspecified open wound, right ankle, initial encounter; E11.42 Type 2 diabetes mellitus with diabetic polyneuropathy; I10 Essential (primary) hypertension; I48.91 Unspecified atrial fibrillation; Y08.89XA Assault by other specified means, initial encounter ==

== ENCOUNTER 2019-04-24 02:05 | Inpatient (IN) | payer OTHER ==
[~2019-04-24] VITALS: Ht 165.1 cm; Wt 105.1 kg
[2019-04-24 02:27] LABS: BASOPHILS ABSOLUTE AUTO 0.02 K/mm3 (0.00-0.23); BASOPHILS PERCENT AUTO 0 % (0-2); EOSINOPHILS PERCENT AUTO 4 % (0-6); Hematocrit 23.4 % (33.0-51.0); Hemoglobin 6.9 g/dL (11.5-16.0); IMMATURE GRAN ABSOLUTE AUTO 0.05 K/mm3 (0.00-0.10); IMMATURE GRAN PERCENT AUTO 1 % (0-1); LYMPHOCYTES PERCENT AUTO 24 % (21-46); MONOCYTES ABSOLUTE AUTO 0.87 K/mm3 (0.16-1.47); MONOCYTES PERCENT AUTO 12 % (4-13); Mean Corpuscular HGB 24.8 pg (26.0-34.0); Mean Corpuscular HGB Conc 29.5 g/dL (31.5-36.5); Mean Corpuscular Volume 84 fL (80-100); Mean Platelet Volume 10.7 fL (9.1-12.4); NEUTROPHILS ABSOLUTE AUTO 4.24 K/mm3 (1.96-9.15); NEUTROPHILS PERCENT AUTO 59 % (41-73); Platelet Count 276 K/mm3 (150-400); RDW Coefficient Variation 16.4 % (11.7-14.2); RDW Standard Deviation 50.6 fL (35.1-46.3); Red Blood Cell Count 2.78 M/mm3 (3.80-5.20); White Blood Cell Count 7.18 K/mm3 (4.00-11.30)
[2019-04-24 02:42] LABS: International Normalized Ratio 2.14; Prothrombin Time Results 21.2 Sec (9.7-11.5)
[2019-04-24 02:46] LABS: Alanine Aminotransfer (ALT/SGP 14 U/L (12-78); Albumin, Blood 2.3 g/dL (3.4-5.0); Albumin/Globulin Ratio 0.8 (0.8-1.8); Alk Phos 134 U/L (50-136); Anion Gap 7 mmol/L (6-16); Aspartate Aminotrans (AST/SGOT 11 U/L (12-37); Bilirubin, Total 0.2 mg/dL (0.1-1.0); Blood Urea Nitrogen 19 mg/dL (8-24); Bun/Creatinine Ratio 21.2 (12.0-20.0); CO2, Blood 29 mmol/L (21-32); Calcium, Blood 8.5 mg/dL (8.5-10.1); Chloride, Blood 109 mmol/L (98-108); Globulin, Blood 2.9 g/dL (2.2-4.0); Glomerular Filtration Rate >60 (60-); Glucose, Blood 120 mg/dL (70-99); Potassium, Blood 3.7 mmol/L (3.5-5.5); Sodium, Blood 145 mmol/L (136-145); Total Protein, Blood 5.2 g/dL (6.4-8.2)
[2019-04-24 02:49] LABS: Magnesium, Blood 1.7 mg/dL (1.6-2.4); Troponin I <0.015 ng/mL (0.000-0.040)
[2019-04-24] MEDS ORDERED: WARF4 PO (02:52)
[2019-04-24] MEDS ORDERED: Tylenol325 MG PO (02:52)
[2019-04-24] MEDS ORDERED: ONDA4ODT MM (02:53)
[2019-04-24] MEDS ORDERED: Percocet 5-3251 EACH PO (02:54)
[2019-04-24] MEDS ORDERED: MIRALAX17 GM PO (02:56)
[2019-04-24] MEDS ORDERED: BISA10S PR (02:57)
[2019-04-24] MEDS ORDERED: ATEN25 PO (03:02)
[2019-04-24 04:25] LABS: Percent Saturation 9.1 % (15.0-50.0)
--- NOTE | 2019-04-24 06:10 | NUR ---
PT ADMITTED TO ROOM ICU 15 FROM ED AT 0511. REPORT RECEIVED FROM MEGAN CARIAS. PT NON-VERBAL EXCEPT TO SAYS 'YES' OR 'NO' TO QUESTIONS. PT FOLLOWS COMMANDS TO SQUEEZE LEFT HAND, UNABLE TO MOVE HER RIGHT HAND OR SIDE. PT HAS NOTED FACIAL DROOP TO RIGHT SIDE. PERRLA AND ABLE TO TRACK WITH EYES. ORDERED ONE UNIT OF PRBC'S. PT GIVES CONSENT FOR TRANSFUSION. TWO RN VERIFY AND SIGNED. TRANSFUSION IN PROCESS WITHOUT S/S TRANSFUSION REACTIONS. DID TAKE MAINTANENCE FLUID TO 20 ML/HOUR WHILE TRANSFUSION IN PROCESS. WILL REVIEW CHART AND PLAN OF CARE FOR THIS PT.
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
[2019-04-24 11:01] LABS: Hematocrit 26.6 % (33.0-51.0); Hemoglobin 7.9 g/dL (11.5-16.0)
[2019-04-24 11:23] LABS: Cholesterol 147 mg/dL (50-200); HDL Cholesterol 37 mg/dL (>39); LDL/HDL RATIO 2.3; Low Density Lipoprotein Chol 85 mg/dL (0-110); Triglycerides 124 mg/dL (30-160); Very Low Density Lipoprot Chol 24 mg/dL (6-32)
--- NOTE | 2019-04-24 12:10 | NUR ---
BLOOD EARLIER COMPLETED AND H/H NOTED. PT RESTING W/O DISTRESS OR CURRENT OBSERVED CHANGES IN STATUS. DR ISAAC IS REQUESTING TO CONT. WITH M.R.A. AND CONVERSATION WITH BROTHER WAS REPORTED TO HER. C-COLAR IS TO REMAIN ON.
--- NOTE | 2019-04-24 15:36 | NUR ---
PT TRANSFERRED TO PCU 6 AFTER MRI COMPLETED. PT AWAKE, NODS AND BLINKS EYES TO QUESTIONS. SHE MOANS AND GROANS IN RESPONSE, ATTEMPTS TO SPEAK BUT IS NONVERBAL. ATTEMPTS TO FOLLOW COMMANDS BUT HAS LIMITED MOVEMENT. SQUEEZES FINGERS WITH LEFT HAND, RIGHT HAND AND ARM FLACCID. MOVES FEET BILATERALLY BUT UNABLE TO LIFT LEGS. LOG ROLLS FOR TRANSFERS. C COLLAR IN PLACE.
--- NOTE | 2019-04-24 16:32 | NUR ---
LATE ENTRY... REPORT GIVEN TO MARVIN Vásquez RN AND PT TO PCU-6 AFTER GOING DOWN TO MRI. DR ISAAC SIGNED THE MRI CLEARING FORM NOTED IN THE ABSENCE OF OLD RECORDS. PT WAS SL MORE VERBAL WHEN QUESTIONED AT THIS TIME. WOUND VAC DISCONNECTED AND CLAMPED LINES FOR MRI PROCEDURE. C-COLAR IN PLACE AND PCU STAFF TO MRI FOR C-SPINE PROTECTION.
--- NOTE | 2019-04-24 19:20 | NUR ---
SHIFT SUMMARY: PT RESTING QUIETLY. LOG ROLL FOR REPOSITIONING AND CHANGES. C-COLLAR IN PLACE. NEURO STATUS REMAINS UNCHANGED THIS SHIFT SINCE TRANSFER OF CARE. MEPILEX APPLIED TO COCCYX DUE TO SPLIT IN SKIN. SUCTION AT BEDSIDE. NO FURTHER NEEDS OR CONCERNS
[2019-04-25 03:55] LABS: BASOPHILS ABSOLUTE AUTO 0.03 K/mm3 (0.00-0.23); BASOPHILS PERCENT AUTO 0 % (0-2); EOSINOPHILS ABSOLUTE AUTO 0.13 K/mm3 (0.00-0.68); EOSINOPHILS PERCENT AUTO 1 % (0-6); Hematocrit 26.8 % (33.0-51.0); Hemoglobin 8.1 g/dL (11.5-16.0); IMMATURE GRAN ABSOLUTE AUTO 0.06 K/mm3 (0.00-0.10); IMMATURE GRAN PERCENT AUTO 1 % (0-1); LYMPHOCYTES ABSOLUTE AUTO 1.05 K/mm3 (0.84-5.20); LYMPHOCYTES PERCENT AUTO 11 % (21-46); MONOCYTES ABSOLUTE AUTO 0.65 K/mm3 (0.16-1.47); MONOCYTES PERCENT AUTO 7 % (4-13); Mean Corpuscular HGB 24.6 pg (26.0-34.0); Mean Corpuscular HGB Conc 30.2 g/dL (31.5-36.5); Mean Corpuscular Volume 82 fL (80-100); Mean Platelet Volume 10.9 fL (9.1-12.4); NEUTROPHILS ABSOLUTE AUTO 7.42 K/mm3 (1.96-9.15); NEUTROPHILS PERCENT AUTO 80 % (41-73); Platelet Count 300 K/mm3 (150-400); RDW Coefficient Variation 16.4 % (11.7-14.2); RDW Standard Deviation 48.2 fL (35.1-46.3); Red Blood Cell Count 3.29 M/mm3 (3.80-5.20); White Blood Cell Count 9.34 K/mm3 (4.00-11.30)
[2019-04-25 04:18] LABS: Anion Gap 6 mmol/L (6-16); Blood Urea Nitrogen 12 mg/dL (8-24); Bun/Creatinine Ratio 15.6 (12.0-20.0); CO2, Blood 30 mmol/L (21-32); Calcium, Blood 8.7 mg/dL (8.5-10.1); Chloride, Blood 106 mmol/L (98-108); Creatinine, Blood 0.77 mg/dL (0.40-1.00); Glomerular Filtration Rate >60 (60-); Glucose, Blood 90 mg/dL (70-99); Potassium, Blood 3.5 mmol/L (3.5-5.5); Sodium, Blood 142 mmol/L (136-145)
--- NOTE | 2019-04-25 05:40 | NUR ---
END OF SHIFT SUMMARY DESPITE RECENT CVA, PT HAS BEEN ABLE TO COMMUNICATE NEEDS TO THIS NURSE. CAN SAY A FEW WORDS BUT ANSWERS YES OR NO QUESTIONS BEST. R ARM CONTINUES TO BE FLACCID. R LEG SHOWS SOME MOTOR MOVEMENT. PT USES LEFT HAND TO COMPLETE MAJORITTY OF TASKS, IS EVEN ABLE TO HELP STAFF TURN HER. VS HAVE BEEN STABLE EXCEPT ONE BOUT OF HTN THAT HAS RESOLVED. PT BEING TURNED BY STAFF AND HAVING CONTINENCE CHECKS. PT HAS PUT OUT MUCH IN TERMS OF URINE INTO BRIEFS. PT CONTINUES WITH C COLLAR, AT ONE POINT THIS NURSE WALKED IN AND FOUND THE C COLLAR OFF. PT REMINDED NOT TO REMOVE IT DUE TO HER HAVING A FX. PT STATES AGREEMENT TO THIS. WOUND VACS CONTINUE TO BE PATENT AND WOUNDS DRAINING. PT IS ABLE TO STATE WHEN SHE IS COMFORTABLE AND HAS DONE SO POST TURNING. PT HAS RESTED WITH EYES CLOSED FOR MAJORITY OF SHIFT. ORAL CARE COMPLETED DUE TO DRY MOUTH. BED IN LOWEST POSITION. BED ALARM ON. CALL LIGHT WITHIN REACH. WILL CONTINUE TO MONITOR PT UNTIL SHIFT CHANGE.
--- NOTE | 2019-04-25 07:29 | NUR ---
ASSUMED CARE: PT RESTING IN BED. C-COLLAR IN PLACE. RESTING QUIETLY, NO ACUTE NEEDS OR CONCERNS AT THIS TIME.
--- NOTE | 2019-04-25 18:38 | NUR ---
Clinical Visit: Pt is alert, answers yes and no questions with a nod/shake of her head. She is reporting pain and indicates her neck. She is also nodding her head that she is anxious. She does want her pain treated, confirmed by nod. Spoke to Shanika. She reports that pt is improving, just in the 12 hours she has been on shift. She is able to interact more now than she was at the begining of the shift. Call placed to Dr. Harper. Orders placed for one time dose of toradol and Tylenol suppository to be given q 6 hours PRN. Will follow up with pt tomorrow to see if effective.
--- NOTE | 2019-04-25 18:43 | NUR ---
SHIFT SUMMARY: PT RESTING QUIETLY, C-COLLAR IN PLACE. NEURO STATUS SEEMS TO BE IMPROVING DAY PROGRESSES. INCREASED STRENGTH AND ABILITY IN ALL LIMBS, STILL UNABLE TO KILN WORKER WITH RIGHT HAND. UPDATES GIVEN TO PT'S BROTHER T/O DAY. SPEECH BECOMING MORE CLEAR. SPEECH THERAPIST TO EVALUATE TOMORROW. PALLIATIVE CARE SPOKE WITH PT ABOUT PAIN AND OBTAINED NEW ORDERS.
--- NOTE | 2019-04-25 21:57 | NUR ---
PROVIDER / VTACH PT HAD 2 MINUTES OF CONTINUOUS WIDE COMPLEX VTACH. TELE PLACED IN CHART. PT ASYMPTOMATIC. PULSES STRONG AND PALPABLE. DR CASTAÑEDA CALLED AND ALERTED OF THIS. ALERTED OF CONDITION. DISCUSSED CARE WITH . [facility] LABS ORDERED. NO NEW ORDERS BESIDES THESE LABS PLACED. WILL CONTINUE TO MONITOR PT.
--- NOTE | 2019-04-26 05:34 | NUR ---
END OF SHIFT SUMMARY PT CONTINUES TO SHOW IMPROVEMENT WITH R SIDE. CAN LIFT R HAND AND STATES RETURN OF FEELING. WORDS ARE MORE PRONOUNCED. PT ABLE TO EXPRESS NEEDS VIA YES/NO QUEASTIONS AND A FEW OTHER WORDS. CONTINUES WITH C COLLAR. IV'S BLOWN, NECESSITATING A POWERGLIDE PLACEMENT, LAYLA. SUCCESFULLY PLACED, PATENT, AND DRAWS BLOOD. PT BEING TURNED BY STAFF WITH CONSISTENT CONTINENCE CHECKS. ORAL CARE BEING PERFORMED WITH TURNING. PT HAD 2 MINUTES OF WIDE COMPLEX V TACH CONTINUOUSLY. PT WAS ASYMPTOMATIC DURING THIS EPISODE. SEE PROVIDER NOTE. PT RETURNED TO AFIB BASELINE AND VS HAVE REMAINED STABLE SINCE. WOUND PUMP REPLACED WITH FACILITY INPATIENT DUE TO NOT HAVING REPLACEMENT FOR WOUND PUMP PT PRESENTED TO HOSPITAL WITH. CALL LIGHT BESIDE PT. WILL CONTINUE TO MONITOR PT UNTIL SHIFT CHANGE.
[2019-04-26 08:58] LABS: BASOPHILS ABSOLUTE AUTO 0.04 K/mm3 (0.00-0.23); BASOPHILS PERCENT AUTO 1 % (0-2); EOSINOPHILS ABSOLUTE AUTO 0.15 K/mm3 (0.00-0.68); EOSINOPHILS PERCENT AUTO 2 % (0-6); Hematocrit 29.1 % (33.0-51.0); Hemoglobin 8.8 g/dL (11.5-16.0); IMMATURE GRAN ABSOLUTE AUTO 0.04 K/mm3 (0.00-0.10); IMMATURE GRAN PERCENT AUTO 1 % (0-1); LYMPHOCYTES ABSOLUTE AUTO 0.85 K/mm3 (0.84-5.20); LYMPHOCYTES PERCENT AUTO 10 % (21-46); MONOCYTES PERCENT AUTO 7 % (4-13); Mean Corpuscular HGB 25.1 pg (26.0-34.0); Mean Corpuscular HGB Conc 30.2 g/dL (31.5-36.5); Mean Corpuscular Volume 83 fL (80-100); Mean Platelet Volume 9.8 fL (9.1-12.4); NEUTROPHILS ABSOLUTE AUTO 7.11 K/mm3 (1.96-9.15); NEUTROPHILS PERCENT AUTO 81 % (41-73); Platelet Count 314 K/mm3 (150-400); RDW Coefficient Variation 17.2 % (11.7-14.2); RDW Standard Deviation 51.9 fL (35.1-46.3); White Blood Cell Count 8.79 K/mm3 (4.00-11.30)
[2019-04-26 09:18] LABS: Anion Gap 7 mmol/L (6-16); Blood Urea Nitrogen 12 mg/dL (8-24); Bun/Creatinine Ratio 14.1 (12.0-20.0); CO2, Blood 29 mmol/L (21-32); Calcium, Blood 8.5 mg/dL (8.5-10.1); Chloride, Blood 107 mmol/L (98-108); Creatinine, Blood 0.85 mg/dL (0.40-1.00); Glomerular Filtration Rate >60 (60-); Glucose, Blood 87 mg/dL (70-99); Potassium, Blood 3.7 mmol/L (3.5-5.5); Sodium, Blood 143 mmol/L (136-145); Troponin I 0.028 ng/mL (0.000-0.040)
--- NOTE | 2019-04-26 11:56 | NUR ---
pt laying in bed with her eyes closed, she will open eyes with verbal, but returns closed immed. she assists with turning a bit, lungs are clear dim in bases, resp even and unalbored, no cough noted, hrirr, tele in place running sr per monitor, see strip, trace edema noted to b/l le, ppp faint, cap refill <3sec, vs stable, afebrile, iv site is power glide to lucrecia site is clear and patent, btx4, abd flat soft nontender, voids via attends, skin has wound vac to ruthigh and ankle, turn Q2, renetta, call light in reach.
--- NOTE | 2019-04-26 14:05 | NUR ---
pt condition unchanged, she is being turned every 2 hrs. wakes briefly. call light in reach.
--- NOTE | 2019-04-26 17:56 | NUR ---
pt has had an uneventful day, no acute changes this shift, she will open eyes and respond with one word answers, right arm weak. call light in reach.
--- NOTE | 2019-04-27 04:39 | NUR ---
SHIFT SUMMARY NO ACUTE CHANGES TO REPORT THIS SHIFT. ASSESSMENT HAS REMAINED AT BASELINE. PT RESPONDS TO MY QUESTIONS WITH ONE WORDED ANSWERS. SHE DENIES PAIN OR NEEDS WHEN ASKED. INCONTINENT. WOUND VACS TO BOTH LEGS IN PLACE. PATENT WITH PINK DRAINAGE. C-COLLAR INTACT. PERMISSIVE HTN PER DR. BAILON. IVF INFUSING AT 75ML/HR. RESTFUL NIGHT. WILL CONTINUE TO MONITOR AND REPORT TO ONCOMING RN.
--- NOTE | 2019-04-27 19:10 | NUR ---
PATIENT TRANSFER: PATIENT TRANSFER TO MEDICAL FLOOR ROOM 328 THIS SHIFT. PT ALERT; ORIENTED TO SELF AND FOLLOWING DIRECTIONS. NO C/O PAIN. VSS. WOUND VAC IN PLACE TO BILATERAL LEG WOUNDS. PATIENT ON BEDREST. PT & OT EVALS THIS SHIFT. ASPIRATION PRECAUTIONS:MEDS CRUSHED IN APPLESAUCE; NO STRAWS; LIQUIDS BY SPOON. NS @ 75 CONTINUING. REPORT GIVEN TO MEGAN COVARRUBIAS.
--- NOTE | 2019-04-28 04:24 | NUR ---
NOC SHIFT SUMMARY PT ADMITTED FOR STROKE WITH RIGHT SIDED WEAKNESS. SHE IS ORIENTED TO SELF AND FOLLOWS DIRECTIONS WELL. C-COLLAR IN PLACE. WOUND VAC IN PLAC AND DRAINING WELL. FLUIDS AT 75 HER HOUR. SHE HAS BEEN TURNED THROUGH THE NIGHT. NOTICED SOME CRACKED SKIN ON COCCYS AND PROTECTIVE MEPILEX APPLIED. ON TELE A-FIB RATE 75 ON LAST CHECK. PRESENTLY APPEARS IN NO ACUTE DISTRESS. WILL CONTINUE TO MONITOR.
[2019-04-28 07:04] LABS: BASOPHILS ABSOLUTE AUTO 0.02 K/mm3 (0.00-0.23); BASOPHILS PERCENT AUTO 0 % (0-2); EOSINOPHILS ABSOLUTE AUTO 0.15 K/mm3 (0.00-0.68); EOSINOPHILS PERCENT AUTO 2 % (0-6); Hematocrit 29.3 % (33.0-51.0); Hemoglobin 8.8 g/dL (11.5-16.0); IMMATURE GRAN ABSOLUTE AUTO 0.03 K/mm3 (0.00-0.10); IMMATURE GRAN PERCENT AUTO 1 % (0-1); LYMPHOCYTES ABSOLUTE AUTO 0.62 K/mm3 (0.84-5.20); LYMPHOCYTES PERCENT AUTO 10 % (21-46); MONOCYTES ABSOLUTE AUTO 0.65 K/mm3 (0.16-1.47); MONOCYTES PERCENT AUTO 10 % (4-13); Mean Corpuscular HGB 24.7 pg (26.0-34.0); Mean Corpuscular Volume 82 fL (80-100); Mean Platelet Volume 9.8 fL (9.1-12.4); NEUTROPHILS ABSOLUTE AUTO 5.01 K/mm3 (1.96-9.15); NEUTROPHILS PERCENT AUTO 77 % (41-73); Platelet Count 304 K/mm3 (150-400); RDW Coefficient Variation 17.3 % (11.7-14.2); RDW Standard Deviation 51.5 fL (35.1-46.3); Red Blood Cell Count 3.56 M/mm3 (3.80-5.20); White Blood Cell Count 6.48 K/mm3 (4.00-11.30)
[2019-04-28 07:07] LABS: Anion Gap 6 mmol/L (6-16); Blood Urea Nitrogen 9 mg/dL (8-24); Bun/Creatinine Ratio 12.3 (12.0-20.0); CO2, Blood 29 mmol/L (21-32); Calcium, Blood 8.3 mg/dL (8.5-10.1); Chloride, Blood 106 mmol/L (98-108); Creatinine, Blood 0.73 mg/dL (0.40-1.00); Glomerular Filtration Rate >60 (60-); Glucose, Blood 92 mg/dL (70-99); Potassium, Blood 3.1 mmol/L (3.5-5.5); Sodium, Blood 141 mmol/L (136-145)
--- NOTE | 2019-04-28 09:31 | NUR ---
BLOOD SUGAR CHANGED TO ACHS PT ORAL INTAKE IMPROVING. PER DR. ELY JARVIS TO START [facility] BLOOD SUGAR & COVERAGE IZA.
--- NOTE | 2019-04-28 16:47 | NUR ---
SHIFT SUMMARY PT C COLLAR CHANGED DUE TO SKIN BREAKDOWN & BRUISING. PT STATES THE NEW COLLAR IS MORE COMFORTABLE. PT HEAD IS STABLALIZED WITHIN COLLAR. PT UP TO SIDE OF BED TWICE THIS SHIFT. PT TOLERATING WELL. PT MEDICATED FOR PAIN ONCE THIS SHIFT. PO INTAKE IMPROVING. NO OTHER CHANGES IN ASSESSMENT AT THIS TIME. VSS. WILL CONTINUE TO MONITOR UNTIL TURNOVER IS COMPLETE.
--- NOTE | 2019-04-28 17:08 | NUR ---
Spiritual Care initial note: Cris was alone in room and awake. She is unable to speak clearly. She nodded when I offered prayer. She nodded "yes" to fear. She shook head "no" when asked if she understood what was happening to her. I provided prayer at bedside. PT was outside room, and I asked PT therapist to spend some time explaining to pt what happened and what happens now. General Accounting Manager Services will remain available.
[2019-04-29 05:14] LABS: BASOPHILS ABSOLUTE AUTO 0.03 K/mm3 (0.00-0.23); BASOPHILS PERCENT AUTO 0 % (0-2); EOSINOPHILS ABSOLUTE AUTO 0.26 K/mm3 (0.00-0.68); EOSINOPHILS PERCENT AUTO 4 % (0-6); Hematocrit 30.5 % (33.0-51.0); Hemoglobin 8.9 g/dL (11.5-16.0); IMMATURE GRAN ABSOLUTE AUTO 0.05 K/mm3 (0.00-0.10); IMMATURE GRAN PERCENT AUTO 1 % (0-1); LYMPHOCYTES ABSOLUTE AUTO 0.73 K/mm3 (0.84-5.20); LYMPHOCYTES PERCENT AUTO 11 % (21-46); MONOCYTES ABSOLUTE AUTO 0.73 K/mm3 (0.16-1.47); MONOCYTES PERCENT AUTO 11 % (4-13); Mean Corpuscular HGB 24.1 pg (26.0-34.0); Mean Corpuscular HGB Conc 29.2 g/dL (31.5-36.5); Mean Corpuscular Volume 83 fL (80-100); Mean Platelet Volume 10.3 fL (9.1-12.4); NEUTROPHILS ABSOLUTE AUTO 4.89 K/mm3 (1.96-9.15); NEUTROPHILS PERCENT AUTO 73 % (41-73); Platelet Count 330 K/mm3 (150-400); RDW Coefficient Variation 17.6 % (11.7-14.2); RDW Standard Deviation 52.7 fL (35.1-46.3); Red Blood Cell Count 3.69 M/mm3 (3.80-5.20); White Blood Cell Count 6.69 K/mm3 (4.00-11.30)
[2019-04-29 05:36] LABS: Albumin, Blood 2.3 g/dL (3.4-5.0); Anion Gap 7 mmol/L (6-16); Blood Urea Nitrogen 7 mg/dL (8-24); Bun/Creatinine Ratio 8.1 (12.0-20.0); CO2, Blood 29 mmol/L (21-32); Calcium, Blood 8.4 mg/dL (8.5-10.1); Chloride, Blood 108 mmol/L (98-108); Creatinine, Blood 0.86 mg/dL (0.40-1.00); Glomerular Filtration Rate >60 (60-); Glucose, Blood 100 mg/dL (70-99); Magnesium, Blood 1.5 mg/dL (1.6-2.4); Phosphorus, Blood 2.9 mg/dL (2.5-4.9); Potassium, Blood 3.7 mmol/L (3.5-5.5); Sodium, Blood 144 mmol/L (136-145)
--- NOTE | 2019-04-29 06:22 | NUR ---
NOC SHIFT SUMMARY PT IS PLEASANT AND COOPERATIVE WITH CARE. SHE ATTEMPTS TO HELP WITH TURNING. SHE HAS BEEN TURNED [id number] THROUGHOUT THE NIGHT. HER CERVICAL COLLAR IS IN PLACE, PT TOLERATING IT WELL. TELE ON PER WHITEWATER RAFTING GUIDE AFIB HR 84 AT THIS TIME. VSS. NO ACUTE CHANGES THIS NIGHT. PT IS PRESENTLY WATCHING TV AND APPEARS IN NO ACUTE DISTRESS. WILL CONTINUE TO MONITOR.
--- NOTE | 2019-04-29 10:19 | NUR ---
PT DAVID'D DOWN INTO THE 40S. PER ORNAMENTAL METAL ERECTOR APPRENTICE NATALIA HICKMAN, PT DAVID'D DOWN INTO THE 40S. WHEN CHECKED ON PT WAS SLEEPING. PT AROUSED & HR CAME BACK INTO THE 80S. WILL CONTINUE TO MONITOR.
--- NOTE | 2019-04-29 17:31 | NUR ---
SHIFT SUMMARY PT UP TO CHAIR THIS SHIFT. PT TOLERATED SITTING UP FOR A FEW HOURS. PT BACK IN BED AT THIS TIME. WOUND VACS CHANGED & PHOTOS TAKEN. PT MEDICATED FOR PAIN ONCE THIS SHIFT. PT HAS YET TO HAVE A BM. BOWEL CARE SCHEDULED TO START THIS EVENING. NO OTHER CHANGES IN ASSESSMENT AT THIS TIME. VSS. WILL CONTINUE TO MONITOR UNTIL TURNOVER IS COMPLETE.
[2019-04-30 04:58] LABS: Stool Occult Blood Guaiac 1 Neg (Neg)
--- NOTE | 2019-04-30 05:40 | NUR ---
SHIFT SUMMARY PT SLEPT OFF AND ON THROUGHOUT THE NIGHT. PT REQUESTED TO BE SITTING UP FOR THE MAJORITY OF THE NIGHT. PT'S STRENGTH IMPROVING. PT DOING WELL HELPING WITH TURNS AND CHANGES. R SIDED WEAKNESS IMPROVING BUT REMAINS. PT CONTINUES TO HAVE SOME DIFFICULTY FINDING HER WORDS. COMMUNICATES HER NEEDS BEST WITH SIMPLE YES OR NO QUESTIONS. C-SPINE BRACE REMAINED ON THROUGHOUT THE NIGHT. PT REFUSED TO TAKE BOWEL CARE PO MEDICATIONS BUT REQUESTED A SUPPOSITORY INSTEAD. SUPPOSITORY GIVEN. LARGE BM THIS EVENING. GUAIC STOOL SENT AND CAME BACK NEGATIVE. PT INCONTINENT. ATTENDS IN PLACE. TELEMETRY READING AFIB 62. MEDICATED X 1 WITH 650 MG FOR GENERALIZED PAIN. WOUND VAC TO R THIGH AND L MALDONADO. DRESSINGS REMAINED CLEAN, DRY, AND INTACT. VSS. NO OTHER ACUTE CHANGES. WILL CONTINUE TO MONITOR.
--- NOTE | 2019-04-30 18:16 | NUR ---
SHIFT SUMMARY: PT HAS SLEPT MOST OF DAY TODAY. SHE WAS ASSISTED TO SIT UP FOR MEALS WITH 1:1 ASSIST WITH FEEDING. PT WAS ONLY ABLE TO EXPRESS NEEDS WITH SIMPLE YES/NO QUESTIONS. PT DID WORK WITH PT TODAY AND WAS ABLE TO GET UP TO THE CHAIR WHILE HE WAS IN THE ROOM. WOUND VACS BOTH REMAIN INTACT AND PATENT. C-COLLAR IS IN PLACE. PT REQUIRES FREQUENT NURSING ROUNDING.
--- NOTE | 2019-05-01 04:46 | NUR ---
SUMMARY: PT SEEMS TO BE ORIENTED AND USES CALL LIGHT APPROPRIATELY BUT HAS APHASIA W/R.FACIAL DROOP AND ANSWERS Q'S IN SHORT PHRASES OR YES/NO RESPONSES. SHE HAS BEEN CALM AND PLEASANT/COOPERATIVE W/CARE BUT SEEMS TO GET FRUSTRATED W/DIFFICULTY CONVEYING NEEDS. C-COLLAR REMAINS IN PLACE AND PT WAS MEDICATED W/TYLENOL PRN X1 FOR TOLERABLE CONTROL OF NECK/BACK PAIN. TURN SCHEDULE MAITAINED D/T R.SIDE WEAKNESS AND R.ARM FLACIDITY. ATTENDS CHANGED PRN FOR INCONTINENCE. SHE TOLERATED PILLS CRUSHED IN APPLESAUCE AND SPOONFULS OF NECTAR THICK LIQ'S. ORAL CARE PROVIDED. WOUND VACS AND DX'S TO BLE'S BOTH REMAIN C/D/I W/SUCTION INTACT. NO ACUTE CHANGES, VSS/AFEBRILE. BP WAS SLIGHTLY ELEVATED THIS AM BUT PT WAS SITTING UPRIGHT D/T BEING TIRED OF LAYING DOWN. PLAN TO RECHECK AFTER BETTER COMFORT ACHIEVED. WCTM AND REPORT TO DAY RN.
--- NOTE | 2019-05-01 17:43 | NUR ---
SHIFT SUMMARY: PT HAS BEEN RESTING IN BED ALERT TO SELF AND SITUATION TODAY AND IS ABLE TO COMMUNICATE WITH "YES" AND "NO". C-COLALR IS IN PLACE AND PT DENIES ANY PAIN. SHE HAS BEEN REPOSITIONED FREQUENTLY. WOUND VACS REMAIN PATENT AND INTACT. PT APPEARS TO NOT BE ABLE TO GET COMFORTABLE IN BED AND WHEN ASKED IF SHE WOULD LIKE TO TRY AND EGG CRATE SHE SAID YES, HER RIVET TESTER BROUGHT ONE IN THE ROOM FOR THE NEXT TIME SHE GETS UP OUT OF BED THE EGG CRATE CAN BE PLACED TO IMPROVE HER COMFORT AND HELP OFFLOAD PRESSURE. PT IS RESTING IN BED AND CONTINUES TO REQUIRE FREQUENT NURSE ROUNDING.
--- NOTE | 2019-05-01 20:58 | NUR ---
TYLENOL PROVIDED AND EGGCRATE PLACED ON BED FOR IMPROVED COMFORT AND PT NOW DENIES PAIN.
--- NOTE | 2019-05-01 20:59 | NUR ---
DURING CARE AND ATTENDS CHANGES PT ROLLED WELL TO BOTH SIDES. PT WAS ABLE TO LIFT R.LEG OFF OF BED AND EXTERNALLY ROTATE IT FOR ATTENDS CHANGES. R.ARM STRENGTH IS ALSO IMPROVING. SHE WAS ABLE TO RAISE ARM IN FRONT OF HER HEAD AND HOLD IT IN PLACE W/O IT FALLING. SHE COULD PUSH AGAINST RN'S HANDS TO LOWER HER ARM WELL. HER ACCOUNTING SUPERVISOR IS NOW INTACT BUT WEAK. R.ARM WAS NEARLY FLACCID ON PREVIOUS NOCTE SHIFT SO THIS IS AN IMPROVEMENT. SPEACH REMAINS GARBLED AND APHASIA PERSISTS BUT EVEN FACIAL MOVEMENTS HAVE GOTTEN BETTER. SHE ANSWERS YES/NO Q'S AND RESPONDS IN SHORT PHRASES BUT SEEMS TO BE RELAYING NEEDS MORE ADEQUATELY. CALL LIGHT IS USED APPROPRIATELY AND REMAINS AT BEDSIDE AND SIGN BOARD HAS ALSO BEEN UTILIZED TO COMMUNICATE.
--- NOTE | 2019-05-02 04:34 | NUR ---
SUMMARY: PT A/O TO SELF/SURROUNDINGS/FAMILY AND ABLE TO CALL APPROPRIATELY FOR ASSIST. FACIAL TONE SEEMS TO BE IMPROVING DESPITE R.FACIAL DROOP AND SHE IS ABLE TO ANSWER YES/NO Q'S AND RESPOND IN SHORT PHRASES. C-COLAR IS IN PLACE AND STAFF ASSISTED W/TURN SCHEDULE. ATTENDS CHANGED PRN FOR INCONTINENCE AND NEW MEPILEX APPLIED. BUTTOCKS AND ROXANA AREA CONT'S TO BE RED, NYSTATIN POWDER APPLIED. HER STRENGTH APPEARS TO BE IMPROVING AND PT IS NOW ABLE TO LIFT AND LOWER RUE/RLE FROM THE BED. R.ADJUNCT PSYCHOLOGY INSTRUCTOR IS NOW INTACT BUT REMAINS WEAK. SHE'S ABLE TO HELP W/ REPOSITIONING. EGGRATE APPLIED TO BED AND TYLENOL RECIEVED PRN X1 FOR IMPROVED CONTROL OF "ALL OVER" PAIN AND COMFORT. NO ACUTE CHANGES, VSS AND AFEBRILE. PT SLEPT MOST OF NOCTE. WCTM AND REPORT TO DAY RN.
--- NOTE | 2019-05-02 12:21 | NUR ---
V-TACH: PER PCU BENCH PRESS OPERATOR, PT EXPERIENCED A 15-BEAT RUN OF V-TACH; HOSPITALIST (DR CASTAÑEDA) AWARE. WCTM.
--- NOTE | 2019-05-02 17:55 | NUR ---
WOUND VAC DRSGS CHANGED. LEFT MALDONADO DRESSING WITH GRANULATION AND DOES NOT APPEAR APPROPRIATE FOR A WOUND VAC. NOTIFIED DR CASTAÑEDA WHO ORDERED WOUND TO BE DRESSED WITH TRIPLE ANTIBIOTIC AND AN ABD PAD AND REEVALUATED DAILY FOR DRSG NEEDS. BE SURE TO THOROUGHLY SATURATE THE DRSG PRIOR TO REMOVAL.
--- NOTE | 2019-05-02 19:28 | NUR ---
SHIFT SUMMARY: NO ACUTE CHANGES TO REPORT THIS SHIFT. PT ALERT; ORIENTED TO SELF AND FOLLOWING DIRECTIONS; CALM AND COOPERATIVE WITH CARE. MEDICATED FOR PAIN PER EMAR. TELE IN PLACE; A-FIB @ 98 PER HYDROLOGY TECHNICIAN DURING MORNING ASSESSMENT. CERVICAL FX; C. COLLAR IN PLACE: DO NOT REMOVE. WOUND TO R THIGH c WOUND VAC; CHANGES MON, WEDS, FRI. WOUND VAC TO L MALDONADO REMOVED THIS SHIFT; ABD c KERLEX c DAILY CHANGES. ORAL ABX CONTINUING. RETURN TO SNF WHEN SPACE AVAILABLE. REPORT GIVEN TO ONCOMING RN.
--- NOTE | 2019-05-03 03:30 | NUR ---
05/03/19 0315 PT RESTLESS AND GRIMACING. SHE HAD REMOVED PILLOWS AND TURNED HERSELF TO RT SIDE. NON-VERBAL. MEDICATED WITH PAIN MED PER OCT. VITALS STABLE. WOUND VAC INTACT TO RT THIGH.DRESSINGS INTACT TO LEFT AND RT LEG.
--- NOTE | 2019-05-03 07:27 | NUR ---
05/03/19 0548 WHILE PRODUCTION SUPERVISOR OFF SHIFT AND RN WERE TURNING AND CLEANING PT OF LARGE INCONTINENCE OF URINE, STRAIN TECHNICIAN STATED THAT PT HAD 7 BEATS OF V.TACH. PT ASYMPTOMATIC. STRAIN TECHNICIAN SAID NO PREVIOUS TACH SEEN. RN WILL CONT. TO MONITOR.
[2019-05-03 07:47] LABS: Hematocrit 33.6 % (33.0-51.0); Hemoglobin 9.8 g/dL (11.5-16.0); Mean Corpuscular HGB 24.6 pg (26.0-34.0); Mean Corpuscular HGB Conc 29.2 g/dL (31.5-36.5); Mean Corpuscular Volume 84 fL (80-100); Mean Platelet Volume 10.2 fL (9.1-12.4); Platelet Count 366 K/mm3 (150-400); RDW Coefficient Variation 18.1 % (11.7-14.2); RDW Standard Deviation 55.6 fL (35.1-46.3); Red Blood Cell Count 3.99 M/mm3 (3.80-5.20); White Blood Cell Count 7.31 K/mm3 (4.00-11.30)
[2019-05-03 08:02] LABS: Anion Gap 6 mmol/L (6-16); Blood Urea Nitrogen 9 mg/dL (8-24); Bun/Creatinine Ratio 9.6 (12.0-20.0); CO2, Blood 32 mmol/L (21-32); Calcium, Blood 9.2 mg/dL (8.5-10.1); Chloride, Blood 106 mmol/L (98-108); Creatinine, Blood 0.94 mg/dL (0.40-1.00); Glomerular Filtration Rate >60 (60-); Glucose, Blood 102 mg/dL (70-99); Magnesium, Blood 1.7 mg/dL (1.6-2.4); Potassium, Blood 4.2 mmol/L (3.5-5.5); Sodium, Blood 144 mmol/L (136-145)
[2019-05-03] MEDS ORDERED: ASPI325 PO (10:59)
[2019-05-03] MEDS ORDERED: FAMO20 PO (10:59)
[2019-05-03] MEDS ORDERED: AMLO10 PO (10:59)
[2019-05-03] MEDS ORDERED: Prinivil10 MG PO (11:00)
--- NOTE | 2019-05-03 14:59 | NUR ---
REPORT CALLED IN TO [facility] AT 14:59 ON 05/03/19
--- NOTE | 2019-05-03 16:31 | NUR ---
PATIENT DISCHARGED TO SNF AT 16:26 BY RICARDO. PERSONAL BELONGINGS SENT WITH PATIENT AND TRANSPORTERS.
== END 2019-05-03 16:20 | DRG 65 ==
LOC: ER 02:05 → ICUW 04:47 → PCU 04:47 → ICUW 04:49 → PCU 15:35 → MEDS 04-27 18:52 → ENPENDDIS 05-03 11:13 → MEDS 05-03 16:20
PROVIDERS: Emergency Medicine; Internal Medicine; Physician Assistant; ADMIT Hospitalist
PROC: 30233N1 Transfusion of Nonautologous Red Blood Cells into Peripheral Vein, Percutaneous Approach (ICD-10-PCS; principal; 2019-04-24)
DX: I63.312 Cerebral infarction due to thrombosis of left middle cerebral artery (principal); S12.100A Unspecified displaced fracture of second cervical vertebra, initial encounter for closed fracture; G81.90 Hemiplegia, unspecified affecting unspecified side; R29.810 Facial weakness; Z85.42 Personal history of malignant neoplasm of other parts of uterus; M19.90 Unspecified osteoarthritis, unspecified site; I10 Essential (primary) hypertension; Z90.09 Acquired absence of other part of head and neck; E89.0 Postprocedural hypothyroidism; R47.1 Dysarthria and anarthria; I48.2 Chronic atrial fibrillation; E11.9 Type 2 diabetes mellitus without complications; Z79.4 Long term (current) use of insulin; Z79.01 Long term (current) use of anticoagulants; Z66 Do not resuscitate; K59.00 Constipation, unspecified; Y92.129 Unspecified place in nursing home as the place of occurrence of the external cause
CPT/HCPCS: 36415; 36430; 70450; 70496; 70498; 70544; 70551; 80048; 80053; 80061; 80069; 82272; 82728; 82947; 83540; 83550; 83735; 83880; 84484; 85014; 85018; 85025; 85027; 85610; 85730; 86850; 86900; 86901; 86923; 87081; 92526; 92610; 93005; 93010; 97110; 97162; 97167; 97530; 97535; 99285-25; A9270; C1751; C9113; J1885; J3475; J7030; P9016

== ENCOUNTER 2019-06-08 00:09 | Inpatient (IN) | payer OTHER ==
[~2019-06-08] VITALS: Ht 167.6 cm; Wt 92.3 kg
[~2019-06-08 00:09] MED LIST changes: +AMLO10 PO; +ASPI325 PO; +ATEN25 PO; +FAMO20 PO; +MIRALAX17 GM PO; +ONDA4ODT MM; +Prinivil10 MG PO; +Tylenol325 MG PO; +WARF4 PO
[2019-06-08 01:20] LABS: Alanine Aminotransfer (ALT/SGP 22 U/L (12-78); Albumin, Blood 2.4 g/dL (3.4-5.0); Albumin/Globulin Ratio 0.7 (0.8-1.8); Alk Phos 146 U/L (50-136); Anion Gap 5 mmol/L (6-16); Aspartate Aminotrans (AST/SGOT 29 U/L (12-37); Bilirubin, Total 0.5 mg/dL (0.1-1.0); Blood Urea Nitrogen 32 mg/dL (8-24); Bun/Creatinine Ratio 36.8 (12.0-20.0); CO2, Blood 29 mmol/L (21-32); Calcium, Blood 8.9 mg/dL (8.5-10.1); Chloride, Blood 105 mmol/L (98-108); Creatinine, Blood 0.87 mg/dL (0.40-1.00); Globulin, Blood 3.4 g/dL (2.2-4.0); Glomerular Filtration Rate >60 (60-); Glucose, Blood 190 mg/dL (70-99); Potassium, Blood 3.7 mmol/L (3.5-5.5); Sodium, Blood 139 mmol/L (136-145); Total Protein, Blood 5.8 g/dL (6.4-8.2)
[2019-06-08 01:21] LABS: BASOPHILS ABSOLUTE AUTO 0.03 K/mm3 (0.00-0.23); BASOPHILS PERCENT AUTO 0 % (0-2); EOSINOPHILS PERCENT AUTO 0 % (0-6); Hemoglobin 8.8 g/dL (11.5-16.0); IMMATURE GRAN ABSOLUTE AUTO 0.22 K/mm3 (0.00-0.10); IMMATURE GRAN PERCENT AUTO 1 % (0-1); LYMPHOCYTES ABSOLUTE AUTO 0.23 K/mm3 (0.84-5.20); LYMPHOCYTES PERCENT AUTO 1 % (21-46); MONOCYTES ABSOLUTE AUTO 0.86 K/mm3 (0.16-1.47); MONOCYTES PERCENT AUTO 4 % (4-13); Mean Corpuscular HGB 25.7 pg (26.0-34.0); Mean Corpuscular HGB Conc 30.3 g/dL (31.5-36.5); Mean Platelet Volume 10.7 fL (9.1-12.4); NEUTROPHILS ABSOLUTE AUTO 20.88 K/mm3 (1.96-9.15); NEUTROPHILS PERCENT AUTO 94 % (41-73); Platelet Count 323 K/mm3 (150-400); RDW Standard Deviation 59.3 fL (35.1-46.3); Red Blood Cell Count 3.42 M/mm3 (3.80-5.20); White Blood Cell Count 22.22 K/mm3 (4.00-11.30)
[2019-06-08 01:22] LABS: Mean Corpuscular Volume 85 fL (80-100)
[2019-06-08 01:24] LABS: International Normalized Ratio 5.87
[2019-06-08 04:57] LABS: Source, Urine Catheter
[2019-06-08 04:59] LABS: Appearance, Urine Clear (Clear); Bilirubin, Urine Neg (Neg); Blood, Urine 1+ (Neg); Color, Urine Yellow (P-Yellow); Glucose Qualitative, Urine Neg (Neg); Ketones, Urine 1+ (Neg); Leukocyte Esterase, Urine 1+ (Neg); Nitrite, Urine Neg (Neg); Protein, Urine 2+ (Neg); Specific Gravity, Urine 1.015 (1.003-1.022); Urobilinogen, Urine 1+ (Normal)
[2019-06-08 05:17] LABS: Amorphous Light (0-Heavy); Bacteria Mod /hpf; Mucus Light (0-Heavy); Squamous Epithelial Cells Few /hpf (Few)
[2019-06-08 05:18] LABS: Hyaline Casts 0-2 /lpf (0-2)
[2019-06-08 06:08] LABS: BASOPHILS ABSOLUTE AUTO 0.04 K/mm3 (0.00-0.23); BASOPHILS PERCENT AUTO 0 % (0-2); EOSINOPHILS PERCENT AUTO 0 % (0-6); Hematocrit 27.5 % (33.0-51.0); Hemoglobin 8.3 g/dL (11.5-16.0); IMMATURE GRAN ABSOLUTE AUTO 0.42 K/mm3 (0.00-0.10); IMMATURE GRAN PERCENT AUTO 2 % (0-1); LYMPHOCYTES ABSOLUTE AUTO 0.47 K/mm3 (0.84-5.20); LYMPHOCYTES PERCENT AUTO 2 % (21-46); MONOCYTES ABSOLUTE AUTO 0.88 K/mm3 (0.16-1.47); MONOCYTES PERCENT AUTO 4 % (4-13); Mean Corpuscular HGB 25.8 pg (26.0-34.0); Mean Corpuscular HGB Conc 30.2 g/dL (31.5-36.5); Mean Corpuscular Volume 85 fL (80-100); Mean Platelet Volume 10.7 fL (9.1-12.4); NEUTROPHILS ABSOLUTE AUTO 22.96 K/mm3 (1.96-9.15); NEUTROPHILS PERCENT AUTO 93 % (41-73); Platelet Count 271 K/mm3 (150-400); RDW Coefficient Variation 19.4 % (11.7-14.2); RDW Standard Deviation 59.2 fL (35.1-46.3); Red Blood Cell Count 3.22 M/mm3 (3.80-5.20); White Blood Cell Count 24.77 K/mm3 (4.00-11.30)
[2019-06-08 06:29] LABS: Alanine Aminotransfer (ALT/SGP 19 U/L (12-78); Albumin, Blood 2.1 g/dL (3.4-5.0); Albumin/Globulin Ratio 0.7 (0.8-1.8); Alk Phos 128 U/L (50-136); Anion Gap 5 mmol/L (6-16); Aspartate Aminotrans (AST/SGOT 26 U/L (12-37); Bilirubin, Total 0.5 mg/dL (0.1-1.0); Blood Urea Nitrogen 31 mg/dL (8-24); Bun/Creatinine Ratio 34.5 (12.0-20.0); CO2, Blood 28 mmol/L (21-32); Calcium, Blood 8.5 mg/dL (8.5-10.1); Chloride, Blood 108 mmol/L (98-108); Globulin, Blood 3.2 g/dL (2.2-4.0); Glomerular Filtration Rate >60 (60-); Glucose, Blood 152 mg/dL (70-99); Potassium, Blood 3.8 mmol/L (3.5-5.5); Sodium, Blood 141 mmol/L (136-145); Total Protein, Blood 5.3 g/dL (6.4-8.2)
[2019-06-08 06:36] LABS: Prothrombin Time Results 50.8 Sec (9.7-11.5)
[2019-06-08 06:37] LABS: International Normalized Ratio 5.61
[2019-06-08] MEDS ORDERED: Pedi-Dri 100,0060 GM TOP (16:15)
--- NOTE | 2019-06-08 17:21 | NUR ---
SHIFT SUMMARY PATIENT ARRIVED TO THE UNIT VIA GURNEY. PICTURES TAKEN OF L MALDONADO AND R THIGH. CLEANED BOTH WOUNDS AND REDRESSED. PLACED WOUND VAC TO R THIGH. REMOVED FACILITY WOUND VAC, PLACED IN PERSONAL BELONGINGS BAG IN CLOSET. PATIENT INCONTINENT AT TIME OF ARRIVAL TO UNIT. CONTINUING TO CHECK AND CHANGE ATTENDS PRN. AT THIS TIME UNORIENTED TO SURROUNDS. DOES FOLLOW INSTRUCTIONS. SLURRED SPEECH NOTED. C COLLAR INTACT, PER ORDERS.
[2019-06-08 19:37] LABS: Adenovirus Not Detected (NOT DETECT); Coronavirus 229E Not Detected (NOT DETECT); Coronavirus HKU1 Not Detected (NOT DETECT); Coronavirus NL63 Not Detected (NOT DETECT); Coronavirus OC43 Not Detected (NOT DETECT); Human Metapneumovirus Not Detected (NOT DETECT); Human Rhinovirus/Enterovirus Not Detected (NOT DETECT); Influenza A Not Detected (NOT DETECT); Influenza A/2009-H1 Not Detected (NOT DETECT); Influenza A/H1 Not Detected (NOT DETECT); Influenza A/H3 Not Detected (NOT DETECT); Influenza B Not Detected (NOT DETECT); Parainfluenza Virus 1 Not Detected (NOT DETECT); Parainfluenza Virus 2 Not Detected (NOT DETECT)
[2019-06-08 19:38] LABS: Bordetella pertussis Not Detected (NOT DETECT); Chlamydophila pneumoniae Not Detected (NOT DETECT); Mycoplasma pneumoniae Not Detected (NOT DETECT); Parainfluenza Virus 3 Not Detected (NOT DETECT); Parainfluenza Virus 4 Not Detected (NOT DETECT); Respiratory Syncytial Virus Not Detected (NOT DETECT)
--- NOTE | 2019-06-09 04:22 | NUR ---
SHIFT SUMMARY PATIENT SLEPT ALL NIGHT. ABLE TO ROLL SELF IN BED WITH MINIMAL ASSISTANCE. WOUND VAC TO R THIGH IN GOOD PLACEMENT AND IS PATENT TO SUCTION. CALL LIGHT AND PATIENT BELOGINGS WITHIN REACH. BED WHEELS LOCKED. WCTM. REPORT GIVEN TO ARIES GUZMAN.
[2019-06-09 05:33] LABS: Prothrombin Time Results 38.1 Sec (9.7-11.5)
[2019-06-09 05:36] LABS: International Normalized Ratio 4.08
[2019-06-09 08:07] LABS: BASOPHILS ABSOLUTE AUTO 0.02 K/mm3 (0.00-0.23); BASOPHILS PERCENT AUTO 0 % (0-2); EOSINOPHILS ABSOLUTE AUTO 0.15 K/mm3 (0.00-0.68); EOSINOPHILS PERCENT AUTO 2 % (0-6); Hematocrit 25.9 % (33.0-51.0); Hemoglobin 7.6 g/dL (11.5-16.0); IMMATURE GRAN ABSOLUTE AUTO 0.04 K/mm3 (0.00-0.10); IMMATURE GRAN PERCENT AUTO 0 % (0-1); LYMPHOCYTES PERCENT AUTO 7 % (21-46); MONOCYTES ABSOLUTE AUTO 0.42 K/mm3 (0.16-1.47); MONOCYTES PERCENT AUTO 4 % (4-13); Mean Corpuscular HGB 25.2 pg (26.0-34.0); Mean Corpuscular HGB Conc 29.3 g/dL (31.5-36.5); Mean Corpuscular Volume 86 fL (80-100); Mean Platelet Volume 11.5 fL (9.1-12.4); NEUTROPHILS PERCENT AUTO 86 % (41-73); Platelet Count 249 K/mm3 (150-400); RDW Coefficient Variation 19.4 % (11.7-14.2); RDW Standard Deviation 60.9 fL (35.1-46.3); Red Blood Cell Count 3.01 M/mm3 (3.80-5.20); White Blood Cell Count 9.73 K/mm3 (4.00-11.30)
[2019-06-09 08:16] LABS: Anion Gap 1 mmol/L (6-16); Blood Urea Nitrogen 24 mg/dL (8-24); Bun/Creatinine Ratio 33.7 (12.0-20.0); CO2, Blood 30 mmol/L (21-32); Chloride, Blood 112 mmol/L (98-108); Creatinine, Blood 0.71 mg/dL (0.40-1.00); Glomerular Filtration Rate >60 (60-); Glucose, Blood 86 mg/dL (70-99); Potassium, Blood 3.6 mmol/L (3.5-5.5); Sodium, Blood 143 mmol/L (136-145)
--- NOTE | 2019-06-09 11:12 | NUR ---
NOTIFIED DR. MENESES AT [facility] ABOUT PT'S HGB LEVEL OF 7.6.
--- NOTE | 2019-06-09 16:33 | NUR ---
PT UNORIENTED TO TIME, PLACE, EVENT. PT RESPONDS TO QUESTIONS WITH SLURRED SPEECH. WOUND VAC INTACT ON RIGHT THIGH. C-COLLAR INTACT. NYASTATIN ORDERED FOR RED AREAS UNDER BREASTS AND PANUS. PT RECEIVED BED BATH FROM COMIC ILLUSTRATOR'S THIS SHIFT. PT INCONTINENT WITH ATTENDS IN PLACE. PT EVALUATED BY SPEECH THERAPY TODAY AND PUT ON PUREE DIET WITH FEEDING ASSISTANCE. BED ALARM ON. SIDE RAILS UP, CALL LIGHT IN REACH.
--- NOTE | 2019-06-10 04:39 | NUR ---
SHIFT SUMMARY PATIENT HAD NO ACUTE CHANGES OBSERVED. AXOX TO SELF AND BEDREST. PIV REMAINS INTACT. IV ABX INFUSED. CBG 109. ON 2L O2 NC. WOUND VAC RIGHT THIGH. NYSTAIN POWDER UNDER BREAST AND PANUS FOLDS. C-COLLAR INTACT. VSS/AFEBRILE. DENIES PAIN, SOB, AND N/V. CALL LIGHT IN REACH. BED IN LOWEST POSITION. WILL CONTINUE TO MONITOR UNTIL DAY SHIFT NURSE ASSUMES CARE.
[2019-06-10 05:29] LABS: Vancomycin, Trough 12.5 ug/mL (5.0-10.0)
[2019-06-10 05:31] LABS: International Normalized Ratio 3.08; Prothrombin Time Results 29.5 Sec (9.7-11.5)
--- NOTE | 2019-06-10 09:51 | NUR ---
PATIENT CHANGED THIS AM, NOTED TO HAVE MILD REDNESS IN HER PANNUS. ALSO NOTED ONE SPOT THAT LOOKS LIKE IT IS STARTING TO OPEN. WILL KEEP AN EYE ON IT. SHE HAS POWDER IN THAT PANNUS. NO FOUL ODOR. PATIENT CHANGED. ROLLED WELL. WOUND VAC TO BE CHANGED WHEN SHE GETS A BED BATH.
[2019-06-10] MEDS ORDERED: Florastor250 MG PO (15:09)
[2019-06-10] MEDS ORDERED: DOXY100 PO (15:10)
--- NOTE | 2019-06-10 15:18 | NUR ---
PATIENT REPORT WAS CALLED TO [facility]. PATIENT'S IV WAS REMOVED PATIENT'S WOUND VAC HAS BEEN REMOVED AND PICTURES HAVE BEEN TAKEN. PATIENT IS UNDERSTANDING THAT SHE WILL BE GOING BACK TO [facility].
== END 2019-06-10 15:45 | DRG 871 ==
LOC: ER 00:09 → ERHOLD 00:10 → ER 02:49 → ERHOLD 02:49 → MEDS 13:31
PROVIDERS: Emergency Medicine; Internal Medicine; ADMIT Internal Medicine
DX: A41.9 Sepsis, unspecified organism (principal); G93.41 Metabolic encephalopathy; L03.115 Cellulitis of right lower limb; I48.20 Chronic atrial fibrillation, unspecified; R65.20 Severe sepsis without septic shock; Z66 Do not resuscitate; E11.9 Type 2 diabetes mellitus without complications; I10 Essential (primary) hypertension; R54 Age-related physical debility; Z79.01 Long term (current) use of anticoagulants; I69.322 Dysarthria following cerebral infarction; I69.398 Other sequelae of cerebral infarction; I69.320 Aphasia following cerebral infarction; E86.0 Dehydration; E03.9 Hypothyroidism, unspecified; D63.8 Anemia in other chronic diseases classified elsewhere
CPT/HCPCS: 0099U; 36415; 70450; 71045; 73560-RT; 80048; 80053; 80202; 81001; 82947; 83605; 85025; 85610; 85730; 87040; 87086; 92526; 92610; 93005; 93010; 96361; 96365; 96366; 96367; 96375; 96376; 99285-25; G0378; J0692; J3370; J7030; J7050; P9612

== ENCOUNTER → 2019-08-05 | Outpatient (CLI) | payer OTHER ==
[~2019-08-05] MED LIST changes: +ATROPINE SULFATE2 ML PO; +DOXY100 PO; +Fentanyl1 EACH TOP; +Florastor250 MG PO; +LORA2L PO; +MORP20L PO; +Pedi-Dri 100,0060 GM TOP
== END | disposition home or self-care (01) ==
LOC: PLD 15:00 → LAB SHORT 15:00 → LAB 15:00
DX: L98.499 Non-pressure chronic ulcer of skin of other sites with unspecified severity (principal)
CPT/HCPCS: 87070; 87077; 87147; 87186; 87205

== ENCOUNTER 2019-09-06 19:49 | Inpatient (IN) | payer OTHER ==
[~2019-09-06] VITALS: Ht 170.2 cm; Wt 92.3 kg
[~2019-09-06 19:49] MED LIST changes: -ATROPINE SULFATE2 ML PO; -Fentanyl1 EACH TOP; -LORA2L PO; -MORP20L PO
[2019-09-06 22:23] LABS: BASOPHILS ABSOLUTE AUTO 0.02 K/mm3 (0.00-0.23); BASOPHILS PERCENT AUTO 0 % (0-2); EOSINOPHILS ABSOLUTE AUTO 0.09 K/mm3 (0.00-0.68); EOSINOPHILS PERCENT AUTO 1 % (0-6); Hematocrit 29.3 % (33.0-51.0); Hemoglobin 8.5 g/dL (11.5-16.0); IMMATURE GRAN ABSOLUTE AUTO 0.03 K/mm3 (0.00-0.10); IMMATURE GRAN PERCENT AUTO 0 % (0-1); LYMPHOCYTES ABSOLUTE AUTO 0.58 K/mm3 (0.84-5.20); LYMPHOCYTES PERCENT AUTO 6 % (21-46); MONOCYTES PERCENT AUTO 4 % (4-13); Mean Corpuscular HGB 22.5 pg (26.0-34.0); Mean Corpuscular Volume 78 fL (80-100); Mean Platelet Volume 10.6 fL (9.1-12.4); NEUTROPHILS ABSOLUTE AUTO 8.37 K/mm3 (1.96-9.15); NEUTROPHILS PERCENT AUTO 88 % (41-73); Platelet Count 249 K/mm3 (150-400); RDW Coefficient Variation 14.9 % (11.7-14.2); RDW Standard Deviation 42.5 fL (35.1-46.3); Red Blood Cell Count 3.77 M/mm3 (3.80-5.20); White Blood Cell Count 9.49 K/mm3 (4.00-11.30)
[2019-09-06 22:41] LABS: Alanine Aminotransfer (ALT/SGP 12 U/L (12-78); Albumin, Blood 2.9 g/dL (3.4-5.0); Albumin/Globulin Ratio 0.8 (0.8-1.8); Alk Phos 123 U/L (50-136); Anion Gap 4 mmol/L (6-16); Aspartate Aminotrans (AST/SGOT 14 U/L (12-37); Bilirubin, Total 0.3 mg/dL (0.1-1.0); Blood Urea Nitrogen 18 mg/dL (8-24); Bun/Creatinine Ratio 19.5 (12.0-20.0); CO2, Blood 30 mmol/L (21-32); Calcium, Blood 9.1 mg/dL (8.5-10.1); Chloride, Blood 106 mmol/L (98-108); Creatinine, Blood 0.92 mg/dL (0.40-1.00); Globulin, Blood 3.5 g/dL (2.2-4.0); Glomerular Filtration Rate >60 (60-); Glucose, Blood 144 mg/dL (70-99); Potassium, Blood 4.4 mmol/L (3.5-5.5); Sodium, Blood 140 mmol/L (136-145); Total Protein, Blood 6.4 g/dL (6.4-8.2)
[2019-09-06 23:03] LABS: International Normalized Ratio 2.02; Prothrombin Time Results 20.8 Sec (9.7-11.5)
[2019-09-07 00:31] LABS: Source, Urine Voided
[2019-09-07 00:39] LABS: Appearance, Urine Hazy (Clear); Bilirubin, Urine Neg (Neg); Blood, Urine 1+ (Neg); Color, Urine Yellow (P-Yellow); Glucose Qualitative, Urine Neg (Neg); Ketones, Urine Neg (Neg); Leukocyte Esterase, Urine 3+ (Neg); Nitrite, Urine Neg (Neg); Protein, Urine 2+ (Neg); Urobilinogen, Urine 1+ (Normal)
[2019-09-07 00:52] LABS: Red Blood Cells, Urine 0-2 /hpf (0-2); White Blood Cells, Urine TNTC /hpf (0-5)
[2019-09-07 00:53] LABS: Bacteria Many /hpf; Squamous Epithelial Cells Few /hpf (Few)
--- NOTE | 2019-09-07 01:21 | NUR ---
ASSUMED CARE OF PT. PT ORIENTED TO ROOM. VSS.
[2019-09-07 04:02] LABS: BASOPHILS ABSOLUTE AUTO 0.02 K/mm3 (0.00-0.23); BASOPHILS PERCENT AUTO 0 % (0-2); EOSINOPHILS ABSOLUTE AUTO 0.01 K/mm3 (0.00-0.68); EOSINOPHILS PERCENT AUTO 0 % (0-6); Hematocrit 28.7 % (33.0-51.0); IMMATURE GRAN ABSOLUTE AUTO 0.03 K/mm3 (0.00-0.10); IMMATURE GRAN PERCENT AUTO 0 % (0-1); LYMPHOCYTES ABSOLUTE AUTO 0.51 K/mm3 (0.84-5.20); LYMPHOCYTES PERCENT AUTO 5 % (21-46); MONOCYTES ABSOLUTE AUTO 0.58 K/mm3 (0.16-1.47); MONOCYTES PERCENT AUTO 6 % (4-13); Mean Corpuscular HGB Conc 27.9 g/dL (31.5-36.5); Mean Corpuscular Volume 79 fL (80-100); Mean Platelet Volume 10.7 fL (9.1-12.4); NEUTROPHILS ABSOLUTE AUTO 8.29 K/mm3 (1.96-9.15); NEUTROPHILS PERCENT AUTO 88 % (41-73); Platelet Count 249 K/mm3 (150-400); RDW Coefficient Variation 14.8 % (11.7-14.2); RDW Standard Deviation 42.7 fL (35.1-46.3); Red Blood Cell Count 3.64 M/mm3 (3.80-5.20); White Blood Cell Count 9.44 K/mm3 (4.00-11.30)
[2019-09-07 04:17] LABS: International Normalized Ratio 1.94
--- NOTE | 2019-09-07 04:36 | NUR ---
SHIFT SUMMARY PT WAS ADMITTED TO SURG FLOOR APPROX 0100. SHE RESPONDS TO YES/NO QUESTIONS BUT HAS DIFFICULTY COMMUNICATING D/T EXPRESSIVE APHASIA. PT HAS BEEN NPO PER ORDERS. BRICENO IN PLACE, OFF FLOOR, DRAINING. PT HAD ONE INCONTINENT BM. R LEG IS DISPLACED; IMMOBILIZER WAS PLACED ON R LEG. PAIN MANAGED WITH IV PAIN MEDS PER ORDERS. PT HAS BEEN BEDREST.
--- NOTE | 2019-09-08 04:19 | NUR ---
SHIFT SUMMARY PT HAS BEEN BEDREST AND RESTING QUIETLY WITH EYES CLOSED MOST OF THE NIGHT. SHE HAS BEEN REPOSITIONED MULT TIMES AND MEDICATED FOR PAIN BEFORE REPOSITIONING. IMMOBILIZER IN PLACE ON R LEG. PT IS VERY PAINFUL WITH MOVEMENT OF THE R LEG. PT HAS HAD ROXANA CARE THIS SHIFT WITH MEPILEX PLACED ON COCCYX FOR PREVENTION. COCCYX WAS NOTED TO BE SLIGHTLY REDDENED WITH SMALL SKIN TEAR. PICTURE IS IN CHART. PT REPSPONDS TO YES/NO QUESTIONS BUT OTHERWISE HAS A DIFFICULT TIME COMMUNICATING. SHE HAS BEEN ON O2 NC THROUGH THE NIGHT WITH CONT. BIOX.
[2019-09-08 06:15] LABS: BASOPHILS ABSOLUTE AUTO 0.02 K/mm3 (0.00-0.23); BASOPHILS PERCENT AUTO 0 % (0-2); EOSINOPHILS ABSOLUTE AUTO 0.02 K/mm3 (0.00-0.68); EOSINOPHILS PERCENT AUTO 0 % (0-6); Hematocrit 22.5 % (33.0-51.0); Hemoglobin 6.6 g/dL (11.5-16.0); IMMATURE GRAN ABSOLUTE AUTO 0.04 K/mm3 (0.00-0.10); IMMATURE GRAN PERCENT AUTO 0 % (0-1); LYMPHOCYTES ABSOLUTE AUTO 0.77 K/mm3 (0.84-5.20); LYMPHOCYTES PERCENT AUTO 7 % (21-46); MONOCYTES ABSOLUTE AUTO 1.07 K/mm3 (0.16-1.47); MONOCYTES PERCENT AUTO 10 % (4-13); Mean Corpuscular HGB 22.7 pg (26.0-34.0); Mean Corpuscular HGB Conc 29.3 g/dL (31.5-36.5); Mean Corpuscular Volume 77 fL (80-100); NEUTROPHILS ABSOLUTE AUTO 9.26 K/mm3 (1.96-9.15); NEUTROPHILS PERCENT AUTO 83 % (41-73); Platelet Count 211 K/mm3 (150-400); RDW Coefficient Variation 15.1 % (11.7-14.2); RDW Standard Deviation 42.5 fL (35.1-46.3); Red Blood Cell Count 2.91 M/mm3 (3.80-5.20); White Blood Cell Count 11.18 K/mm3 (4.00-11.30)
[2019-09-08 06:29] LABS: Anion Gap 4 mmol/L (6-16); Blood Urea Nitrogen 22 mg/dL (8-24); Bun/Creatinine Ratio 25.4 (12.0-20.0); CO2, Blood 30 mmol/L (21-32); Calcium, Blood 8.7 mg/dL (8.5-10.1); Chloride, Blood 108 mmol/L (98-108); Creatinine, Blood 0.87 mg/dL (0.40-1.00); Glomerular Filtration Rate >60 (60-); Glucose, Blood 135 mg/dL (70-99); Potassium, Blood 4.1 mmol/L (3.5-5.5); Sodium, Blood 142 mmol/L (136-145)
[2019-09-08 06:32] LABS: International Normalized Ratio 1.51; Prothrombin Time Results 15.8 Sec (9.7-11.5)
--- NOTE | 2019-09-08 11:56 | NUR ---
TRANSFUSION IN PRGRESS. VSS. NO S/SX ADVERSE EFFECTS. DR HERZOG AND PRESTO LOG OPERATOR IN TO SEE. CONT TO MONITOR.
--- NOTE | 2019-09-08 16:36 | NUR ---
Initial palliative care consult: Spoke with honorio Moore, care assistant Mona, pt's caregiver Serena Alonso and Dr. Cheney, anesth. Pt awakens when spoken to. She does have some difficulty with communicating due to a history of a CVA, however she answers my questions appropriately this afternoon. Spoke with YENIFER Dunn and she states pt lives at a [facility]. Serena Alonso is her caregiver. Spoke with Serena who reports pt was able to walk independently with a walker and when this injury happened pt was walking. Serena reports pt cried out in pain and then got down on the floor. Serena and pt's guardian, Stacey Thakkar ([phone]) came to visit with her today and pt told them that she wanted to have her leg repaired if possible. Serena states she spoke with Leyla's brother in [place] who agrees with Leyla's decision to go ahead with surgery if she is able to have it. Serena reports that she and pt's guardian, Stacey, can be at hospital at 1500 tomorrow for a meeting if necessary. If they need to be here sooner, Serena asks that staff call her ([phone]) and she will rearrange her schedule to get here sooner. Spoke with Dr. Cheney, anesthesia, who will evaluate her for possible surgery. Dr. Cheney states he will evaluate her and talk with orthpedic surgeon. Dr. Cheney evaluated pt and she told him that she was unsure if she wanted to have her leg fixed. Dr. Cheney states he believes that she could have the surgery if she chooses to have it done. She may likely have a lengthy recovery if she goes ahead with surgery. Spoke with Serena and updated her on Dr. Cheney's evaluation. Serena will call Leyla's nurse at 0730 tomorrow to determine the plan going forward and she will come in if necessary. Nursing updated on current plan. PC will continue to follow. Pt rec'd a unit of PBRCs today and nursing will follow up with hospitalist to see if she may need another unit.
[2019-09-08 17:38] LABS: Hematocrit 27.8 % (33.0-51.0); Hemoglobin 8.3 g/dL (11.5-16.0)
--- NOTE | 2019-09-08 18:29 | NUR ---
SHIFT SUMMARY ANESTHESIOLOGIST IN TO SEE PATIENT THIS AFTERNOON, AGREES TO TAKE PATIENT TO OR TOMORROW. PATIENT STATES SHE IS UNDECIDED. PALLIATIVE CARE HERE TO SEE. FOSTER CARE PROVIDER AND GUARDIAN WILL BE IN AT 0730 TOMORROW TO CONSULT WITH PATIENT AND PAIN CONTROLLED WITH IV DILAUDID PRN. C/O R SHOULDER PAIN. XRAY OBTAINED PER ORDER. IVF INFUSING PER ORDER. PATIENT RESTING QUIETLY AT THIS TIME.
--- NOTE | 2019-09-09 04:14 | NUR ---
PATIENT WAKES TO VERBAL STIMULI AND LOOKS AT THE PERSON SPEAKING. SHE IS VERBAL AND IS ABLE TO COMMUNICATE WITH SIMPLE PHRASES. SHE DOES NOT FOLLOW ALL COMMANDS. SHE HELPS WITH TURNING BUT IS UNABLE TO COUGH. PATIENT IS NPO TODAY FOR POSSIBLE SURGERY. NO ACUTE CHANGES.
[2019-09-09 04:49] LABS: BASOPHILS ABSOLUTE AUTO 0.02 K/mm3 (0.00-0.23); BASOPHILS PERCENT AUTO 0 % (0-2); EOSINOPHILS ABSOLUTE AUTO 0.03 K/mm3 (0.00-0.68); EOSINOPHILS PERCENT AUTO 0 % (0-6); Hematocrit 24.3 % (33.0-51.0); Hemoglobin 7.2 g/dL (11.5-16.0); IMMATURE GRAN ABSOLUTE AUTO 0.04 K/mm3 (0.00-0.10); IMMATURE GRAN PERCENT AUTO 0 % (0-1); LYMPHOCYTES ABSOLUTE AUTO 0.91 K/mm3 (0.84-5.20); LYMPHOCYTES PERCENT AUTO 8 % (21-46); MONOCYTES ABSOLUTE AUTO 1.26 K/mm3 (0.16-1.47); MONOCYTES PERCENT AUTO 11 % (4-13); Mean Corpuscular HGB 23.2 pg (26.0-34.0); Mean Corpuscular HGB Conc 29.6 g/dL (31.5-36.5); Mean Corpuscular Volume 78 fL (80-100); Mean Platelet Volume 11.1 fL (9.1-12.4); NEUTROPHILS ABSOLUTE AUTO 9.32 K/mm3 (1.96-9.15); NEUTROPHILS PERCENT AUTO 80 % (41-73); Platelet Count 190 K/mm3 (150-400); RDW Coefficient Variation 15.3 % (11.7-14.2); RDW Standard Deviation 43.5 fL (35.1-46.3); White Blood Cell Count 11.58 K/mm3 (4.00-11.30)
[2019-09-09 05:04] LABS: Anion Gap 4 mmol/L (6-16); Blood Urea Nitrogen 21 mg/dL (8-24); Bun/Creatinine Ratio 27.3 (12.0-20.0); CO2, Blood 30 mmol/L (21-32); Calcium, Blood 8.5 mg/dL (8.5-10.1); Chloride, Blood 108 mmol/L (98-108); Creatinine, Blood 0.77 mg/dL (0.40-1.00); Glomerular Filtration Rate >60 (60-); Glucose, Blood 106 mg/dL (70-99); International Normalized Ratio 1.26; Potassium, Blood 3.6 mmol/L (3.5-5.5); Prothrombin Time Results 13.3 Sec (9.7-11.5); Sodium, Blood 142 mmol/L (136-145)
[2019-09-09 14:34] LABS: Hematocrit 29.2 % (33.0-51.0); Hemoglobin 8.7 g/dL (11.5-16.0)
--- NOTE | 2019-09-09 17:17 | NUR ---
SPOKE WITH DR HERZOG REGARDING PATIENTS URINE OUTPUT OF 200 ML. ORDERS RECEIVED
--- NOTE | 2019-09-09 17:51 | NUR ---
SUMMARY PATIENT LYING WITH EYES CLOSED UNLESS CARE BEING PROVIDED, PATIENT MOANS, CRIES OUT AND BECOMES TEARFUL AT TIMES WHEN BEING REPOSITIONED. PATIENT GRIMACES AND CRIES OUT WHEN RIGHT ARM IS REPOSITIONED. PATIENT CANNOT VERBALIZE OR POINT TO WHERE PAIN IS IN HER RIGHT ARM. RIGHT LEG IMMOBILIZER IN PLACE THROUGHOUT SHIFT, LOOSENED Q 2 HOURS FOR SKIN CHECKS BUT NOT REMOVED FROM LEGS. BILAT MEPILEX INPLACE TO HEELS AND HEELS FLOATED THROUGHOUT SHIFT. MEPILEX TO COCCYX. SPOKE WITH SPEECH THERAPY REGARDING SWALLOW EVAL AND PATIENT WILL HAVE EVAL ON 09/10/2019.
--- NOTE | 2019-09-10 04:35 | NUR ---
SHIFT SUMMARY RIGHT FEMUR FX DIFFICULT TO ASSESS PATIENTS ORIENTATION R/T EXPRESSIVE APHASIA. RESONDS TO YES OR NO QUESTIONS AND COOPERATES WITH ALL CARE. MEDICATED FOR PAIN X2 DURING SHIFT DUE TO PT CRYING OUT LOUD AND GRIMACING. PT STATED RELIEF WHEN ASKED IF SHE FELT BETTER AFTER MEDICATIONS ADMINISTERED. PT REPOSITIONED DURING SHIFT TO COMFORT. HEPARIN INFUSING DURING SHIFT PER EMAR. BRICENO PATENT AND DRAINING.
[2019-09-10 06:40] LABS: BASOPHILS ABSOLUTE AUTO 0.03 K/mm3 (0.00-0.23); BASOPHILS PERCENT AUTO 0 % (0-2); EOSINOPHILS ABSOLUTE AUTO 0.17 K/mm3 (0.00-0.68); EOSINOPHILS PERCENT AUTO 2 % (0-6); Hematocrit 28.2 % (33.0-51.0); Hemoglobin 8.4 g/dL (11.5-16.0); IMMATURE GRAN ABSOLUTE AUTO 0.03 K/mm3 (0.00-0.10); IMMATURE GRAN PERCENT AUTO 0 % (0-1); LYMPHOCYTES ABSOLUTE AUTO 0.81 K/mm3 (0.84-5.20); LYMPHOCYTES PERCENT AUTO 8 % (21-46); MONOCYTES ABSOLUTE AUTO 1.06 K/mm3 (0.16-1.47); MONOCYTES PERCENT AUTO 11 % (4-13); Mean Corpuscular HGB Conc 29.8 g/dL (31.5-36.5); Mean Corpuscular Volume 81 fL (80-100); Mean Platelet Volume 10.9 fL (9.1-12.4); NEUTROPHILS PERCENT AUTO 79 % (41-73); Platelet Count 204 K/mm3 (150-400); RDW Coefficient Variation 16.1 % (11.7-14.2); RDW Standard Deviation 46.8 fL (35.1-46.3)
--- NOTE | 2019-09-10 10:13 | NUR ---
PT AWAKENS WHEN NAME CALLED, UNABLE TO RESPOND TO QUESTIONS, APPEARS TO BE IN NO DISTRESS, PT TO REMAIN NPO PER SPEECH THERAPY THIS AM, ABLE TO TAKE DEEP BREATHS DURING ASSESSMENT WHEN ASKED, DOESN'T RESPOND WHEN ASKED IF IN PAIN OR HAVING NUMBNESS OR TINGLING ON BLE'S OR TO WIGGLE HER TOES, CONT. TO MONITOR FOR ANY CHANGES, ORAL CARE PRN.
--- NOTE | 2019-09-10 10:51 | NUR ---
DR. GAMEZ NOTIFIED PT IS NPO PER ST AND PO MEDS WERE HELD THIS AM.
--- NOTE | 2019-09-10 18:02 | NUR ---
SUMMARY DR. GAMEZ NOTIFIED REGARDING BLOOD SUGARS TRENDING DOWN, STATES WILL REVIEW PT'S CHART, PT CONTINUES TO BE NPO, PT HAS BEEN SLEEPING MOST OF THE DAY, WAKES UP TO VERBAL STIMULI, MEDICATED W/ IV DILAUDID ONCE TODAY BEFORE BED BATH, NPO PER SPEECH THERAPY TODAY, NO OTHER CHANGES THIS SHIFT.
--- NOTE | 2019-09-10 21:43 | NUR ---
HEPARIN DRCLAU FARRIS FROM PHARMACY CALLED TO DECREASE HEPARIN DOSE. WILL ADJUST RATE PER EMAR AND CONTINUE TO MONITOR PATIENT.
--- NOTE | 2019-09-11 05:01 | NUR ---
SHIFT SUMMARY PATIENT HAS BEEN ALERT, ANSWERS QUESTIONS APPROPRIATLY AND HAS COOPERATED WITH CARE. IMMOBILIZER IN PLACE, PULSE STRONG DISTALLY, CAP REFILL <3. PT STATED SHE COULD FEEL SENSATION. PATIENT HAS BEEN REPOSITIONED FREQUENTLY FOR COMFORT AND HAS HELPED WITH REPOSITON. PT TOLERATED ORAL CARE WELL. BRICENO IS PATENT AND DRAINING. HEPARIN CONTINUING TO INFUSE ORDERED. PT HAS DENIED PAIN DURING SHIFT AND HAS BEEN SMILING AND LAUGHING AT TIMES.
[2019-09-11 05:21] LABS: Percent Saturation 11.7 % (15.0-50.0)
--- NOTE | 2019-09-11 08:50 | NUR ---
AWAKE, ABLE TO TAKE DEEP BREATHS WHEN ASKED, UNABLE TO RESPOND TO OTHER QUESTIONS, APPEARS TO BE IN NO DISTRESS, REPOSISTIONED IN BED, ORAL CARE DONE.
--- NOTE | 2019-09-11 09:58 | NUR ---
PT MORE AWAKE AND TALKING, EXPLAINED PLAN FOR SURGERY ON THURSDAY THIS AM WHEN DR. MADERA WAS IN ROOM, ASKED PT TO NOD HEAD IF SHE UNDERSTOOD AND PT NODDED HER HEAD, ANSWERS YES OR NO TO SOME QUESTIONS, WHEN ASKED IF HAVING PAIN AT THIS TIME, PT STATES "NO" CONT. TO MONITOR FOR ANY CHANGES.
--- NOTE | 2019-09-11 17:27 | NUR ---
SUMMARY PT MORE AWAKE TODAY, ANSWERED YES/NO TO SOME QUESTIONS, FOLLOWS SOME COMMANDS, WHEN ASKED IF HAVING PAIN THIS AFTERNOON, PT SAID "YES" MEDICATED FOR PAIN ORDERED, DENIES ANY SOB OR ANY OTHER DISCOMFORT, REPORT GIVEN TO MEGAN SERRANO, NO ACUTE CHANGES THIS SHIFT.
--- NOTE | 2019-09-11 17:35 | NUR ---
ASSUMED CARE OF PT. PT RESTING QUIETLY IN BED. NO CONCERNS AT THIS TIME.
[2019-09-12 03:59] LABS: BASOPHILS ABSOLUTE AUTO 0.01 K/mm3 (0.00-0.23); BASOPHILS PERCENT AUTO 0 % (0-2); EOSINOPHILS ABSOLUTE AUTO 0.07 K/mm3 (0.00-0.68); EOSINOPHILS PERCENT AUTO 1 % (0-6); Hematocrit 25.5 % (33.0-51.0); Hemoglobin 7.7 g/dL (11.5-16.0); IMMATURE GRAN ABSOLUTE AUTO 0.05 K/mm3 (0.00-0.10); IMMATURE GRAN PERCENT AUTO 1 % (0-1); LYMPHOCYTES ABSOLUTE AUTO 0.55 K/mm3 (0.84-5.20); LYMPHOCYTES PERCENT AUTO 6 % (21-46); MONOCYTES ABSOLUTE AUTO 0.93 K/mm3 (0.16-1.47); MONOCYTES PERCENT AUTO 11 % (4-13); Mean Corpuscular HGB Conc 30.2 g/dL (31.5-36.5); Mean Corpuscular Volume 79 fL (80-100); Mean Platelet Volume 10.9 fL (9.1-12.4); NEUTROPHILS ABSOLUTE AUTO 7.18 K/mm3 (1.96-9.15); NEUTROPHILS PERCENT AUTO 82 % (41-73); Platelet Count 186 K/mm3 (150-400); RDW Coefficient Variation 17.2 % (11.7-14.2); Red Blood Cell Count 3.21 M/mm3 (3.80-5.20); White Blood Cell Count 8.79 K/mm3 (4.00-11.30)
[2019-09-12 04:14] LABS: International Normalized Ratio 1.28; Prothrombin Time Results 13.5 Sec (9.7-11.5)
[2019-09-12 04:17] LABS: Albumin, Blood 1.7 g/dL (3.4-5.0); Anion Gap 6 mmol/L (6-16); Blood Urea Nitrogen 14 mg/dL (8-24); Bun/Creatinine Ratio 23.4 (12.0-20.0); CO2, Blood 29 mmol/L (21-32); Calcium, Blood 8.4 mg/dL (8.5-10.1); Chloride, Blood 103 mmol/L (98-108); Glomerular Filtration Rate >60 (60-); Glucose, Blood 119 mg/dL (70-99); Phosphorus, Blood 2.1 mg/dL (2.5-4.9); Potassium, Blood 2.6 mmol/L (3.5-5.5); Sodium, Blood 138 mmol/L (136-145)
--- NOTE | 2019-09-12 06:32 | NUR ---
PT VSS T/O NIGHT, BP TRENDING DOWN W/SCHEDULED LOPRESSOR. HR AFIB PER TELE MONITOR. SATS >95% ON 2LO2 NC. PT REMAINS VERY PAINFUL W/MVMT, PT MEDICATED PRIOR TO REPOSITIONING. PT NPO PER ORDERS, IVF CONT, BRICENO DRNG JOY URINE. KNEE IMMOBILIZER IN PLACE. PT REPOSITIONED FRANCISCO T/O NIGHT. AWAITING SURGERY PLANS AND OBTAINING POA.
--- NOTE | 2019-09-12 10:55 | NUR ---
Met with Serena, pt's caregiver. Stacey was not able to meet for this meeting but Serena reports she will contact Stacey to keep her informed. Serena states they are still waiting on paperwork for guardianship which is expected to be completed at any time. Reviewed current POC and answered questions that Serena had. Serena would like to speak with Dr. Tovar to determine if pt would be a candidate for surgery. Will speak with Dr. Tovar and see when he plans to visit with pt and Serena.
--- NOTE | 2019-09-12 13:56 | NUR ---
Requested by pt's caregiver, Serena, to meet with her guardian, Serena Ibarra and PC RN to discuss current POC. Will review chart and plan to meet at 1030.
--- NOTE | 2019-09-12 19:48 | NUR ---
SHIFT SUMMARY PT IS UNCHANGED DURING SHIFT. OPENS EYES OCCASIONALY BUT UNABLE TO COMMUNICATE, PRBC AND ELECTROLYTE REPLACEMENT COMPLETE, REPOSTIONED FREQ. DR DUFFY SPOKE WITH CAREGIVER TODAY AND BUCKS TRACTION STARTED.
[2019-09-13 05:38] LABS: BASOPHILS ABSOLUTE AUTO 0.02 K/mm3 (0.00-0.23); BASOPHILS PERCENT AUTO 0 % (0-2); EOSINOPHILS PERCENT AUTO 1 % (0-6); Hematocrit 29.6 % (33.0-51.0); Hemoglobin 8.9 g/dL (11.5-16.0); IMMATURE GRAN ABSOLUTE AUTO 0.07 K/mm3 (0.00-0.10); IMMATURE GRAN PERCENT AUTO 1 % (0-1); LYMPHOCYTES ABSOLUTE AUTO 0.72 K/mm3 (0.84-5.20); LYMPHOCYTES PERCENT AUTO 8 % (21-46); MONOCYTES ABSOLUTE AUTO 0.94 K/mm3 (0.16-1.47); MONOCYTES PERCENT AUTO 10 % (4-13); Mean Corpuscular HGB 24.1 pg (26.0-34.0); Mean Corpuscular HGB Conc 30.1 g/dL (31.5-36.5); Mean Corpuscular Volume 80 fL (80-100); Mean Platelet Volume 10.9 fL (9.1-12.4); NEUTROPHILS ABSOLUTE AUTO 7.71 K/mm3 (1.96-9.15); NEUTROPHILS PERCENT AUTO 81 % (41-73); Platelet Count 191 K/mm3 (150-400); RDW Coefficient Variation 17.7 % (11.7-14.2); RDW Standard Deviation 48.7 fL (35.1-46.3); Red Blood Cell Count 3.69 M/mm3 (3.80-5.20); White Blood Cell Count 9.56 K/mm3 (4.00-11.30)
[2019-09-13 05:52] LABS: International Normalized Ratio 1.34; Prothrombin Time Results 14.1 Sec (9.7-11.5)
--- NOTE | 2019-09-13 05:52 | NUR ---
SHIFT SUMMARY. PATIENT WAS INTERACTIVE WITH THE NURSE AND DIRECTOR OF [employer], AT ONE POINT SHE WAS SMILING AND LAUGHING. PATIENT TURNED THROUGH THE SHIFT. MEDICATED FOR PAIN PER EMAR PARAMETERS. BEARD TRACTION IS ON AND HAS BEEN SLIGHTLY REPOSTITIONED TO MAINTAIN GOOD ALIGNMENT.
[2019-09-13 05:56] LABS: Albumin, Blood 1.7 g/dL (3.4-5.0); Anion Gap 5 mmol/L (6-16); Blood Urea Nitrogen 15 mg/dL (8-24); Bun/Creatinine Ratio 25.9 (12.0-20.0); CO2, Blood 31 mmol/L (21-32); Calcium, Blood 8.6 mg/dL (8.5-10.1); Chloride, Blood 103 mmol/L (98-108); Creatinine, Blood 0.58 mg/dL (0.40-1.00); Glomerular Filtration Rate >60 (60-); Glucose, Blood 120 mg/dL (70-99); Phosphorus, Blood 2.8 mg/dL (2.5-4.9); Potassium, Blood 3.1 mmol/L (3.5-5.5); Sodium, Blood 139 mmol/L (136-145)
--- NOTE | 2019-09-13 13:14 | NUR ---
PATIENT WAS RESTING COMFORTABLY IN BED. INTRODUCED SELF AND ASKED PERMISSION TO TAKE CARE OF HER AND ACCESS HER CHART TO WHICH SHE AGREED.
--- NOTE | 2019-09-13 18:22 | NUR ---
SHIFT SUMMARY PT SLEPT T/O SHIFT EXCEPT WHEN REPOSITIONED. MEDICATED WHEN SHOWING SIGNS OF PAIN SUCH WINCING OR CRYING. REPOSITIONED. PT IS NONSURGICAL AND HAS BUCKS TX FOR PAIN CONTROL. SPOKE WITH HOSPITALIST ABOUT TRANSITIOING IV PAIN MEDS TO PO WELL AN ALTERNATIVE TO HEPARIN DRIP. NO NEW ORDERS RECIEVED DR CHOSE TO CALL CAREGIVER AND DISCUSS PLAN OF CARE BEFORE CHNAGES MADE.
--- NOTE | 2019-09-13 19:10 | NUR ---
RECVD REPORT FROM PREVIOUS SHIFT RN ASH, PT SLEEPING, AWAKENS ON COMMAND, UNABLE TO SPEAK, SHAKES HEAD, CALL LIGHT WITHIN REACH
--- NOTE | 2019-09-14 04:57 | NUR ---
shift summary: vss, SBP remained <160. urine output via catheter >300 ml. pt appears to be sleeping comfortably during nurse rounding. pt remained oriented to instructions and self, follows directions, supplies one word answers to questions. pt painful in back, RL, and RUE when repositioning. PT remained NPO. heparin drip infusing t/o shift. pt's caregiver called x 1 during NOC shift for update. [place] traction remained in place.
--- NOTE | 2019-09-14 10:30 | NUR ---
STATUS CHANGE AFTER DR HERZOG ROUNDS ON PT, PT CHANGED TO COMFORT CARE. DNR BRACELET PLACED. HEPARIN GTTS STOPPED. PT RESTING IN BED AND APPEARS COMFORTABLE AT THIS TIME.
--- NOTE | 2019-09-14 11:53 | NUR ---
Comfort care palliative care visit. Reviewed medications and new orders with RN. Reviewed d/c summary and orders in EMR. Pt has been receiving IV dilauded for pain prn. Duragesic patch ordered to be placed this am. RN discussed comfort care orders and medications with in prep for discharge back to adult foster home with hospice. Roxanol order entered per comfort care order set and 's dc ordered medications so that it could be used instead of IV analgesic for breakthru pain while waiting for duragesic patch to reach a therapeutic blood level in next 12-24 hours. Oral care and face wash provided to pt. She is nonverbal but responsive, open eyes, maintains eye contact. She does not appear anxious or painful without movement or repositioning. She does not appear entirely comfortable either. Discussed plan to trial Roxanol for breakthru and for coverage. Roxanol may cover pain well enough that duragesic patch is not needed. RN to hold on patch for now. Giving 5 mg Roxanol sl at this time. Case conferenced with MEGAN Dunn CM also re: awaiting timeframe available for [facility] to admit pt to services at [facility].
--- NOTE | 2019-09-14 17:03 | NUR ---
SHIFT SUMMARY PT WAS TRANSITIONED TO COMFORT CARE TODAY. WAS RESTLESS FOR A SHORT TIME MIDDAY BUT SINCE 10MG ROXANOL GIVEN PT APPEARS MUCH MORE COMFORTABLE AND STILL OPENS EYES WHEN NAME IS SAID. PLAN FOR D/C ON THURSDAY BACK TO [facility].
--- NOTE | 2019-09-14 21:27 | NUR ---
PT SLEEPING IN BED, NO DISTRESS NOTED. PT AWAKENS TO VERBAL STIMULI, NODS HEAD YES WHEN ASKED IF COMFORTABLE. PLAN TO MONITOR AND MEDICATE PER ORDERS.
--- NOTE | 2019-09-15 05:36 | NUR ---
PT HAD NO CHANGES T/O NIGHT. PT APPEARED TO SLEEP FOR MOST OF SHIFT, AWAKENS TO VERBAL STIMULI. PT REPOSITIONED GENTLY T/O NIGHT, PT MEDICATED PRIOR TO REPOSITIONING. NO RESP DISTRESS OR NAXIETY NOTED. PT REMAINED NPO, ORAL CARE PROVIDED. IMMOBILIZER AND BUCKS TX IN PLACE. WILL CONT TO MONITOR UNTIL REP GIVEN TO ONCOMING RN.
--- NOTE | 2019-09-15 16:29 | NUR ---
WHILE REPOSTIONING, PT BEGAN TO GET TEARFUL. PT NODDED HEAD YES WHEN ASKED IF SHE WAS IN PAIN. SECRETIONS ALSO VISIBLE. PT WITH OCC CONGESTED COUGH. PT SUCTIONED AT THIS TIME.
--- NOTE | 2019-09-15 17:49 | NUR ---
SHIFT SUMMARY: PT APPEARS TO BE RESTING COMFORTABLY MOST OF SHIFT. MEDICATED WITH ROXINOL ONCE PT WAS TEARFUL WITH REPOSTIONING. PT GIVEN ORAL CARE AND SUCTIONED PRN. IMMOBILIZER AND TRACTION IN PLACE.
--- NOTE | 2019-09-15 18:21 | NUR ---
[facility] spiritual care note: Mrs. Baker was sleeping and appeared comfortable when I entered room. She opened eyes briefly to touch, but fell back into a peaceful sleep. She appears well cared-for by nursing. Prayer provided at [facility]. [facility] services will remain available.
--- NOTE | 2019-09-16 06:30 | NUR ---
PT SPPEARED TO SLEEP FOR MOST OF NIGHT. PT AWAKENS TO VERBAL STIMULI, RESP E/U. PT MEDICATED FOR PAIN PRIOR TO REPOSITIONING, IS PAINFUL AND BECOMES TEARFUL AT TIMES W/REPOSITIONING. SUPPORT AND THERAPEUTIC COMMUNICATION PROVIDED PRN. PT NPO, DEVAN JOHNSON DARK JOY URINE. WILL CONT TO MONITOR UNTIL REP GIVEN TO ONCOMING RN.
--- NOTE | 2019-09-16 09:34 | NUR ---
PT AWAKENED FOR REPOSITIONING AND INTRODUCTION TO STAFF. SHE TOLERATED SMALL AMOUNT OF REPOSITIONING WELL. SHE APPEARS RELAXED. WILL CONTINUE TO MONITOR. PT WILL DISCHARGE HOME AT APPROXIMATELY 1030.
[2019-09-16] MEDS ORDERED: ATROPINE SULFATE2 ML PO (09:55)
[2019-09-16] MEDS ORDERED: LORA2L PO (09:56)
[2019-09-16] MEDS ORDERED: MORP20L PO (09:57)
[2019-09-16] MEDS ORDERED: Fentanyl1 EACH TOP (09:58)
--- NOTE | 2019-09-16 13:17 | NUR ---
DISCHARGE PT WAS DISCHARGED HOME AT 1056 WITH [facility]. [facility] AT THE PT[facility]S [facility] WAS CONTACTED AND REPORT WAS GIVEN. SCRIPTS AND DISCHARGE INSTRUCTIONS FAXED TO JOYA AT THE HOME AND SENT WITH THE PT. PT WAS PREMEDICATED PRIOR TO DISCHARGE.
== END 2019-09-16 10:55 | DRG 534 ==
LOC: ER 19:49 → SURS 23:30 → ER 09-07 00:36 → SURS 09-07 00:57
PROVIDERS: Emergency Medicine; Internal Medicine; Nurse Practitioner Acute Care; Orthopaedic Surgery; ADMIT Hospitalist
PROC: 30233N1 Transfusion of Nonautologous Red Blood Cells into Peripheral Vein, Percutaneous Approach (ICD-10-PCS; principal; 2019-09-07)
DX: S72.451A Displaced supracondylar fracture without intracondylar extension of lower end of right femur, initial encounter for closed fracture (principal); S42.411A Displaced simple supracondylar fracture without intercondylar fracture of right humerus, initial encounter for closed fracture; I48.20 Chronic atrial fibrillation, unspecified; I69.351 Hemiplegia and hemiparesis following cerebral infarction affecting right dominant side; Z51.5 Encounter for palliative care; W19.XXXA Unspecified fall, initial encounter; D50.0 Iron deficiency anemia secondary to blood loss (chronic); Z79.01 Long term (current) use of anticoagulants; I10 Essential (primary) hypertension; E11.9 Type 2 diabetes mellitus without complications; R13.10 Dysphagia, unspecified; F03.90 Unspecified dementia, unspecified severity, without behavioral disturbance, psychotic disturbance, mood disturbance, and anxiety; E11.42 Type 2 diabetes mellitus with diabetic polyneuropathy; Z86.73 Personal history of transient ischemic attack (TIA), and cerebral infarction without residual deficits; E03.9 Hypothyroidism, unspecified
CPT/HCPCS: 36415; 36430; 51702; 71045; 73030; 73502; 73552; 73560-RT; 73562-RT; 73700; 80048; 80053; 80069; 81001; 82728; 82947; 83540; 83550; 85014; 85018; 85025; 85610; 85730; 86850; 86900; 86901; 86923; 92610; 93005; 93010; 94762; 96374; 96375; 99285-25; A9270; J0696; J1170; J1644; J1940; J2270; J2405; J2916; J3480; J7030; J7042; J7050; J7060; P9016